=== PATIENT | male | born 1975 | race Caucasian/White ===

== ENCOUNTER 2019-07-13 15:32 | Outpatient (CLI) | payer OTHER, SELFPAY ==
--- NOTE | ~2019-07-13 | US_ITS ---
EXAMINATION: US right upper quadrant DATE: 07/13/2019 10:21 INDICATION: Right upper quadrant abdominal pain. Fatty liver. TECHNIQUE: Multiple grayscale and Doppler ultrasound images of the abdomen were obtained. COMPARISON: 03/27/2018 FINDINGS: The region of the pancreas is obscured by shadowing bowel gas. Liver has normal contour, with a mayo h surface. There is increased parenchymal echogenicity and coarsened echotexture consistent with diff use hepatic steatosis. No liver lesion identified although sensitivity is decreased by the poor acous tic penetration resulting from the steatosis. No intrahepatic biliary duct dilation suspected. Rain l venous flow was seen in the hepatopetal, normal direction and has normal Doppler waveform. The gall bladder is normal in appearance. There is no cholelithiasis. The common bile duct measures 3 mm, whi ch is normal. Sonographic Ornelas sign was reported as negative by the heddle machine operator.Visualized portion of the right kidney demonstrates normal contour and echogenicity with no hydronephrosis. IMPRESSION: 1. Diffuse hepatic steatosis. Reviewed, dictated and finalized at location A. TOWER CLIMBER
== END 2019-07-13 15:33 | disposition home or self-care (01) ==
LOC: ANHIMG 11-14 15:33
DX: K76.0 Fatty (change of) liver, not elsewhere classified (principal)
CPT/HCPCS: 76705

== ENCOUNTER 2021-09-01 11:19 | Emergency (ER) | payer BC, SELFPAY ==
[2021-09-01] VITALS (9 sets, daily range): BP systolic 157–197; BP diastolic 89–108; PULSE 98–104; RESP 13–22; TEMP 35.7–37.4; O2SAT 97–100
--- NOTE | ~2021-09-01 | XR_ITS ---
EXAMINATION: XR chest 1V portable EXAM DATE: 09/01/2021 13:57 INDICATION: COVID for 10 days, loose stool, shortness of breath. TECHNIQUE: Portable AP frontal chest x-ray was obtained. Comparison is made to prior examination from 03/19/2018. FINDINGS: Small patchy regions of mid and lower lung zone airspace disease, probably COVID pneumonia. No pneumothorax or pleural effusion. The cardiomediastinal silhouette is prominent but magnified on this AP technique. There are mild bony degenerative changes. IMPRESSION: Small patchy regions bilateral pneumonia. Reviewed, dictated and finalized at location A. EHOLD CHORES
--- NOTE | 2021-09-01 13:44 | ED.URI ---
HPI - URI/Sore Throat General Chief Complaint: Upper Respiratory Infection Stated Complaint: COVID + FEVER Time Seen by Provider: 09/01/21 13:33 Source: patient Mode of arrival: ambulatory Limitations: no limitations History of Present Illness HPI Narrative: Patient is a 45-year-old male complaining of cough, constant, productive, clear sputum accompanied by on and off fever and nausea for the past week. Patient states that he tested positive for Covid but actually is feeling better. Patient denies any chest pain, shortness of breath, abdominal pain, vomiting, diarrhea or rash. Related Data Allergies Allergy/AdvReac Type Severity Reaction Status Date / Time No Known Allergies Allergy Unverified 04/27/18 00:32 Review of Systems Review of Systems: All systems reviewed & are unremarkable except as noted in HPI and below Constitutional: Constitutional: Denies body ache(s), Denies excessive sweating, Denies fatigue, Denies headache(s), Denies lethargy, Denies malaise, Denies weakness and Denies weight loss Eyes: Eyes: Denies blurry vision, Denies change in vision and Denies loss of vision ENT: Denies dizziness, Denies ear discharge, Denies headache(s), Denies lip swelling, Denies epistaxis, Denies nasal congestion, Denies neck pain, Denies throat swelling and Denies tongue swelling Cardiovascular: Cardiovascular: Denies chest pain, Denies chest pain at rest, Denies chest pain with activity, Denies diaphoresis, Denies rapid heart rate, Denies edema, Denies irregular heart rhythm, Denies lightheadedness, Denies palpitations, Denies dyspnea and Denies dyspnea on exertion Respiratory: Respiratory: Denies chest congestion, Denies hemoptysis, Denies dyspnea and Denies dyspnea on exertion Gastrointestinal: Gastrointestinal: Denies abdominal pain, Denies melena, Denies hematochezia, Denies diarrhea, Denies vomiting and Denies hematemesis Musculoskeletal: Musculoskeletal: Denies abnormal gait, Denies deformity, Denies joint swelling, Denies limited range of motion, Denies neck pain and Denies numbness Neurologic: Denies Abnormal speech present, Denies abnormal gait, Denies confusion, Denies dizziness, Denies headache(s), Denies focal weakness, Denies loss of vision, Denies numbness, Denies Other visual disturbances, Denies Sensory deficit (Neuro) and Denies weakness Psychiatric: Psychiatric: Denies confusion, Denies depression, Denies auditory hallucinations, Denies homicidal ideation and Denies suicidal ideation Endocrine: Endocrine: Denies cold intolerance, Denies excessive sweating, Denies fatigue, Denies heat intolerance and Denies palpitations Hematologic/Lymphatic: Hematologic/Lymphatic: Denies easy bleeding and Denies easy bruising Allergic/Immunologic: Allergic/Immunologic: Denies lip swelling, Denies throat swelling and Denies tongue swelling PMFSH Comments Past medical history: None Family history: Hypertension Social history: Non-smoker no EtOH or drug use Exam Const: General: cooperative, comfortable, no acute distress, well developed, alert and awake; No confusion Nutritional Appearance: obese Orientation/consciousness: oriented to person, oriented to place, oriented to time, patient oriented x3 and No confusion Limitations: no limitations HENMT: Head: normal to inspection, normocephalic and atraumatic Ears: hearing grossly normal bilaterally, TM normal on the right and TM normal on the left General nose exam: Normal external nose present, Normal nares present and No nasal discharge present Face and sinus: normal facial exam Mouth: Yes Normal oral and palatal mucosa present, Yes lip normal, Yes tongue normal and Yes oropharynx normal Throat: posterior oropharynx normal, tonsils normal and uvula midline Eyes: General: appearance normal, both eyes and all related structures Pupils: Equal, round and reactive pupils present EOM: EOMs intact bilaterally Neck: Neck: normal visual inspection, full ROM, no lymphadenopathy and no
[2021-09-01 14:11] LABS: Basophils Percent Auto 0.2 % (0.2-1.2); Eosinophils Percent Auto 0.4 % (0-4.4); Hematocrit 43.3 % (42.0-52.0); Hemoglobin 15.2 g/dL (14.0-18.0); Immature Granulocyte Absolute 0.01 K/mm3 (0.00-0.031); Immature Granulocyte Percent A 0.2 % (0-0.5); Lymphocytes Percent Auto 19.8 % (18.3-44.2); Mean Corpuscular HGB Conc 35.1 g/dl (32-36); Mean Corpuscular Hemoglobin 30.5 pg (26-34); Mean Corpuscular Volume 86.8 fl (80-100); Mean Platelet Volume 10.6 fl (7.4-10.4); Monocytes Absolute Auto 0.3 K/mm3 (0.1-0.6); Monocytes Percent Auto 6.4 % (2.6-8.5); Neutrophils Absolute Auto 3.3 K/mm3 (1.3-6.7); Platelet Count Result 151 k/mm3 (150-375); Red Blood Count 4.99 M/mm3 (4.6-6.20); Red Cell Distribution Width 12.5 % (11.5-14.5); White Blood Count 4.5 K/mm3 (4.5-10.0)
[2021-09-01 14:27] LABS: Alanine Aminotransferase 82 U/L (4-50); Albumin Level 4.5 g/dL (3.5-5.1); Alkaline Phosphatase 92 U/L (38-126); Anion Gap 12 mmol/L (8-16); Aspartate Amino Transferase 58 U/L (17-59); Bilirubin,Total 0.7 mg/dL (0.2-1.3); Blood Urea Nitrogen 11 mg/dL (9-20); Calcium 9.1 mg/dL (8.4-10.2); Carbon Dioxide 26 mmol/L (22-30); Chloride 100 mmol/L (98-107); Estimated CRCL calculation 147 ml/min; Estimated Glomerular Filt Rate > 60; Glucose 127 mg/dL (65-110); Potassium 3.7 mmol/L (3.4-5.0); Sodium 138 mmol/L (137-145)
[2021-09-01] MEDS: PROMETHAZINE HCL 25 MG/ML AMPUL 12.5 MG IV PUSH (14:36)
[2021-09-01] MEDS: SODIUM CHLORIDE 0.9% IV 1,000 ML 999 ML IV CONT (14:36)
== END 2021-09-01 16:00 | disposition home or self-care (01) ==
PROVIDERS: Emergency Provider Emergency Medicine; PCP Family Medicine
DX: U07.1 COVID-19 (principal); J12.82 Pneumonia due to coronavirus disease 2019
CPT/HCPCS: 36415; 71045; 80053; 85025; 85055; 96361; 96374; 99284; J2550; J7030

== ENCOUNTER 2025-02-19 10:24 | Outpatient (CLI) | payer OTHER, SELFPAY ==
--- OUTSIDE RECORDS SUMMARY | 2025-02-19 12:58 | XMS_ITS | Referral Summary ---
Author Organization [facility] Address [address] [place] [id number] Care Team Providers Care Juice Standardizer Name Role Phone Hector Ghotra DO Primary Care Provider Sloan Rayo MD Unavailable [phone] Allergies Active Allergy Reactions Criticality Noted Date Comments Bee Pollen Hives,Unknown Medium 01/22/2013 FROM ALLERGY TEST; BAD SEASONAL ALLERGIES Grass Pollen Unknown 01/22/2013 FROM ALLERGY TEST; STATES SEASONAL ALLERGIES Shellfish Containing Products Unknown 01/22/2013 PT STATES FROM ALLERGY TEST; ABLE TO EAT SHELLFISH Tilactase Unknown 01/22/2013 Medications fluticasone propionate (FLONASE) 50 mcg/actuation nasal spray Administer 2 sprays into affected nostril(s) daily as needed 3 Active omeprazole (PriLOSEC) 20 mg capsuleIndicatio ns:Gastroesophag eal reflux disease without esophagitis Take 1 capsule (20 mg total) by mouth daily 90 capsule 3 4 Active cetirizine-pseud oephedrine ER (ZyrTEC-D) 5-120 mg per 12 hr tabletIndication s:Seasonal allergic rhinitis due to pollen Take 1 tablet by mouth 2 (two) times a day 60 tablet 11 4 06/17/20 25 Active Active Problems Problem Noted Date Diagnosed Date Seasonal allergic rhinitis due to pollen 024 Overview (06/17/2024): Chronic condition stable on Zyrtec D Continue same medications H/O bariatric surgery 11/14/2023 Overview (06/17/2024): September 2022 - weight approximately 325 lb Routine physical examination 11/14/2023 Overview (06/17/2024): April 11, 2023 June 17, 2024 Type 2 diabetes mellitus wit hout complication, without long-term current use of insulin 09/27/2022 Overview (11/14/2023): Overall stable and not on medication at this time A1c was 8.9 in September 2022 (just prior to his gastric bypass surgery) Assessment & Plan (11/14/2023 4:51 PM CDT): Update labs with A1c Mild mood disorder 04/04/2022 Overview (11/14/2023): Chronic, stable condition on SSRI Continue same medication Iron deficiency anemia due to chronic blood loss 10/12/2018 CPAP (continuous positive airway pressure) dominique esquivel 10/30/2017 Anemia 10/02/2015 Assessment & Plan (11/14/2023 4:51 PM CDT): Update labs Acid reflux 10/02/2013 Overview (11/14/2023): Doing well on daily PPI Continue same medication Anxiety 10/02/2013 Chronic lower back pain 10/02/2013 Primary hypertension 10/02/2013 Overview (11/14/2023): Onset: 1975 Stable not on meds at this time Dyslipidemia 10/02/2013 Overview (11/14/2023): Stable not on meds at this time LDL 128 in August 2022 (prior to his gastric bypass surgery) Assessment & Plan (11/14/2023 4:51 PM CDT): Update labs Obstructive sleep apnea 10/02/2013 Overview (11/14/2023): Can continue with pulmonology Hypogonadism, testicular 12/24/2012 Assessment & Plan (11/14/2023 4:51 PM CDT): Recheck labs Resolved Problems Problem Noted Date Diagnosed Date Resolved Date Morbid obesity 04/04/2022 06/17/2024 Anemia 10/01/2018 11/14/2023 Immunizations Immunization Administration Dates Next Due DTaP, Unspecified 05/07/2008 Influenza, Quadrivalent, Rec ombinant, Egg Free, Preservative Free, Intramuscular 05/25/2019 Influenza, Quadrivalent, Spl it, Preservative Free, Intramuscular 06/14/2018 Influenza, Split 06/08/2016 Influenza, Unspecified 06/17/2024(Deferr ed: Patient Refused),11/14/2023(Deferred: Patient Refused),06/14/2018,07/03/2017, 015,07/03/2014 Pneumococcal Conjugate Pcv20 11/14/2023(Deferred : Patient Refused) Tdap 02/07/2020,05/07/2008 Social History Tobacco Use Types Packs/Day Years Used Date Smoking Tobacco: Never Smokeless Tobacco: Never Tobacco Cessation:Counseling Given: Not Answered Alcohol Use Standard Drinks/Week Comments Yes 0 (1 standard drink = 0.6 oz pur e alcohol) AUDIT-C Answer Date Recorded Q1: How often do you have a drink containing alc ohol? Monthly or less 06/17/2024 Q2: How many drinks containi ng alcohol do you have on a typical day when you are drinking? 1 or 2 06/17/2024 Q3: How often do you have si x or more drinks on one occasion? Never 06/17/2024 PHQ-2 Answer Date Recorded PHQ-2 Total Score (If total score is 3 or more points, staff should administer the PHQ-9) 0 11/14/2023 Personal Safety Answer Date Recorded Getting School Help Needed Not on file 09/12 Sex and Gender Information Value Date Recorded Sex Assigned at Not on file Legal Sex Male 8:07 PM ART THERAPY SPECIALIST Gender Identity Not on file Sexual Orientation Not on file Last Filed Vital Signs Vital Sign Reading Time Taken Comments Blood Pressure 120/78 06/17/2024 3:23 PM CDT Pulse 75 06/17/2024 3:23 PM CDT Temperature 36.3 C (97.4 F) 06/17/2024 3:23 PM CDT Respiratory Rate 18 06/17/2024 3:23 PM CDT Oxygen Saturation 99% 06/17/2024 3:23 PM CDT Inhaled Oxygen Concentration - - Weight 109.8 kg (242 lb) 06/17/2024 3:23 PM CDT Height 181.6 cm (5' 11.5) 06/17/2024 3:23 PM CD T Body Mass Index 33.28 06/17/2024 3:23 PM CDT Plan of Treatment Not on file Procedures Procedure Name Priority Date/Time Associated Diagnosis Comments EGFR Routine 06/17/2024 4:19 PM CDT HEMOGLOBIN A1C Routine 06/17/2024 4:19 PM CDT LIPID PANEL Routine 06/17/2024 4:19 PM CDT COLONOSCOPY Routine 12/14/2020 from Last 3 Months or Most Recently Relevant to Health Maintenance Results * eGFR (06/17/2024 4:19 PM CDT) eGFR >90 >=60 mL/min/1. 73 m2 Comment: Interpretive Data Reference Interval Normal >/= 90 mL/min/1.73m2 Mildly decreased* 60 - 89 mL/min/1.73m2 Mildly to moderately decreased 45 - 59 mL/min/1.73m2 Moderately to severely decreased 30 - 44 mL/min/1.73m2 Severely decreased 15 - 29 mL/min/1.73m2 Kidney Failure < 15 mL/min/1.73m2 *Relative to young adult level Estimated glomerular filtration rate is determined by the 2020 CKD-EPI equation recommended by the National Kidney Foundation (A Unifying Approach to GFR Estimation: Recommendations of the NKF-ASK Task Force on Reassessing the Inclusion of Race in Diagnosing Kidney Disease, JASN 2020). The CKD-EPI equation should not be used for patients with unstable renal function and has not been validated in children and those over 70. Current interpretive data was last reviewed 2021. Testing performed by: [facility], [address] [place] [address], [place]., [address] Blood 06/17/2024 4:19 PM CDT 06/17/2024 5:07 PM CDT Maria Antonia Verduzco SCREW MACHINE OPERATOR LAB BLOOD ORDERABLES Final R esult Performing Organization Address [facility] Co de Phone Number [facility] [address] [address] * Hemoglobin A1c (06/17/2024 4:19 PM CDT) Hgb A1C 5.4 4.0 - 5.6 % Comment:Testing performed by : [address] [address] Estimated Average Glucose 108 mg/dL [facility] Comment: The ADA recommends reporting an estimated Average Glucose (eAG) with all Hemoglobin A1c results using the equation derived from a study of 507 normal and diabetic adults. Minority populations were underrepresented and children were not included. (Diabetes Care 31:8663-2824, 2008). The eAG is not equivalent to a fasting glucose. Testing performed by: [facility], [address] [place] [address]., [address] Blood 06/17/2024 4:19 PM CDT 06/17/2024 5:07 PM CDT Maria Antonia Verduzco SCREW MACHINE OPERATOR LAB BLOOD ORDERABLES Final R [facility] Performing Organization Address [facility] Co de Phone Number [address] [address] * (ABNORMAL) Lipid panel (06/17/2024 4:19 PM CDT) Cholesterol 222(H) 30 - 199 mg/dL Comment: Interpretive Data Ages < or = 19 years Acceptable: <170 mg/dL Borderline high: 170-199 mg/dL High: >or= 200 mg/dL Ages > or = 20 years Desirable: <200 mg/dL Borderline high: 200-239 mg/dL High: >or= 240 mg/dL Literature References: 1. Expert Panel on Integrated Guidelines for Cardiovascular Health and Risk Reduction in Children and Adolescents. Pediatrics 2011;128:S213 2. NCEP Expert Panel. Circulation 2004;110:227 Current Interpretive Data was last revised on 2018. Testing performed by: [address] [address] Triglycerides 124 <=149 mg/dL [facility] Comment: Interpretive Data Ages < or = 9 years Acceptable: <75 mg/dL Borderline high: 75-99 mg/dL High: >or= 100 mg/dL Ages 10 to 20 years Acceptable: <90 mg/dL Borderline high: 90-129 mg/dL High: >or= 130 mg/dL Ages > or = 20 years Desirable: <150 mg/dL Borderline high: 150-199 mg/dL High: 200-499 mg/dL Very high: >or= 499 mg/dL Literature References: 1. Expert Panel on Integrated Guidelines for Cardiovascular Health and Risk Reduction in Children and Adolescents. Pediatrics 2011;128:S213 2. NCEP Expert Panel. Circulation 2004;110:227 Current Interpretive Data was last revised on 2018. Testing performed by: [address] [address] HDL 45 >=40 mg/dL [facility] Comment: Interpretive Data Ages < or = 19 years Acceptable: >45 mg/dL Borderline low: 40-45 mg/dL Low: <40 mg/dL Ages > or = 20 years Desirable: >or= 60 mg/dL Low: <40 mg/dL Literature References: 1. Expert Panel on Integrated Guidelines for Cardiovascular Health and Risk Reduction in Children and Adolescents. Pediatrics 2011;128:S213 2. NCEP Expert Panel. Circulation 2004;110:227 Current Interpretive Data was last revised on 2018. Testing performed by: [address] [address] LDL, calculated 155(H) <=129 mg/dL [facility] Comment: Interpretive Data Ages < or = 19 years Acceptable: <110 mg/dL Borderline high: 110-129 mg/dL High: >or= 130 mg/dL Ages > or = 20 years Optimal: <100 mg/dL Near optimal: 100-129 mg/dL Borderline high: 130-159 mg/dL High: >160 mg/dL Calculated using the Diallo LDL-C estimating equation. This equation was implemented on 2024. Prior to this date LDL-C was estimated using the Friedewald equation. Literature References: 1. Expert Panel on Integrated Guidelines for Cardiovascular Health and Risk Reduction in Children and Adolescents. Pediatrics 2011;128:S213 2. NCEP Expert Panel. Circulation 2004;110:227 3. Yoel M et al. DEVYN Cardiol. 2019January 02;5(5):540-548. doi: [email or web address] Current Interpretive Data was last revised on 2024. Testing performed by: [address] [address] Non-HDL Cholesterol 177 mg/dL [facility] HERRMANN Comment: Interpretive Data Ages < or = 19 years Acceptable: <120 mg/dL Borderline high: 120-144 mg/dL High: >145 mg/dL Ages > or = 20 years When triglycerides are >200 mg/dL, Non-HDL cholesterol is a secondary target of therapy with treatment goals that are 30 mg/dL greater than the LDL cholesterol target. Literature References: 1. Expert Panel on Integrated Guidelines for Cardiovascular Health and Risk Reduction in Children and Adolescents. Pediatrics 2011;128:S213 2. NCEP Expert Panel. Circulation 2004;110:227 Current Interpretive Data was last revised on 2018. Testing performed by: [address] [address] Chol/HDL ratio 5 [facility] Comment:Testing performed by : [address] [address] Blood 06/17/2024 4:19 PM CDT 06/17/2024 5:07 PM CDT Maria Antonia Verduzco SCREW MACHINE OPERATOR LAB BLOOD ORDERABLES Final R esult [facility] HERRMANN [address] [facility] [place] [address] * Colonoscopy (12/14/2020) Anatomical Region Laterality Modality Other Historical Provider ENDOSCOPY PROCEDURES Tammie l Result from Last 3 Months or Most Recently Relevant to Health Maintenance Insurance [employer] ON LICENSE OF [facility] Care Teams Juice Standardizer Relationship Specialty Start Date End Date Hector Ghotra DO PCP - General Family Practice 09/26/18 Sloan Rayo MD Medical Oncologist/Laundry Operator Hematology and Oncology 10/04/18
--- OUTSIDE RECORDS SUMMARY | 2025-02-19 12:58 | XMS_ITS | Clinical Summary ---
Author Organization [facility] Address [address] [address] Phone Care Team Providers Care Die Cast Supervisor Name Role Phone Hector Ghotra DO Primary Care Provider Allergies Active Allergy Reactions Criticality Noted Date Comments Bee Pollen Unknown 01/22/2013 FROM ALLERGY TEST; BAD SEASONAL ALLERGIES Grass Pollen Unknown 01/22/2013 FROM ALLERGY TEST; STATES SEASONAL ALLERGIES Shellfish Containing Products Unknown 01/22/2013 PT STATES FROM ALLERGY TEST; ABLE TO EAT SHELLFISH Medications allopurinoL (ZYLOPRIM) 100 mg tablet Take 300 mg by mouth daily. Active fluticasone propionate (FLONASE) 50 mcg/spray [place], Suspension nasal inhaler Administer 2 Sprays in each nostril 1 time daily as needed. Active cetirizine 5 mg-pseudoephedr ine ER 120 mg tablet,extended release,12hr Take 1 Tablet by mouth 2 times daily. Active atorvastatin (LIPITOR) 20 mg tablet Take 20 mg by mouth. 2 Active FLUoxetine 40 mg capsule Take 40 mg by mouth daily. Active omeprazole 20 mg capsule,delayed release Take 20 mg by mouth daily. Active HYDROcodone-matthew taminophen (HYCET) 7.5-325 mg/15 mL SolutionIndicat ions:Post-op pain Take 15 mL by mouth every 6 hours as needed for severe pain. Max Daily Amount: 60 mL 300 mL 09/27/2022 12:09 PM RAILROAD DETECTIVE 3 Active ondansetron (ZOFRAN ODT) 4 mg Tablet, Rapid Dissolve Dissolve 1 tablet on top of tongue, then swallow with saliva every 6 hours as needed for Nausea/Vomiting . 28 Tablet 09/27/2022 12:09 PM RAILROAD DETECTIVE Active Active Problems Problem Noted Date Diagnosed Date Type 2 diabetes mellitus wit hout complication, without long-term current use of insulin 09/27/2022 Insulin resistance 09/27/2022 Nausea 09/26/2022 General medical exam 09/26/2022 Immunizations Immunization Administration Dates Next Due (ADACEL/BOOSTRIX)(10 YR UP) TDAP VACCINE, 0.5ML, IM 02/07/2020,05/07/2008 DTaP, Unspecified Formulation 05/07/2008 INFLUENZA VACCINE QUADRIVALE NT 6 MOS UP PF IM 06/14/2018 INFLUENZA VACCINE QUADRIVALE NT RECOMB 18 YR UP PF IM 05/25/2019 Influenza Seasonal Unspecifi ed Formulation IM 06/14/2018 Influenza Seasonal Unspecifi ed Formulation PF IM 06/08/2016 Influenza Virus Vaccine, Spl it Virus (Incl. Purified Surface antigen)-retired CODE 06/08/2016 Influenza, Unspecified Formulation 06/14,06/04/2018,07/03/2017,2014,07/03/2014 Family History Medical History Relation Name Comments Diabetes Father Heart Disease Paternal Grandfather Relation Name Status Comments Father Paternal Grandfather Social History Tobacco Use Types Packs/Day Years Used Date Smoking Tobacco: Never Smokeless Tobacco: Former Chew Tobacco Cessation:Counseling Given: Not Answered Comments:QUIT CHEWING THEN STARTED VAPING Alcohol Use Standard Drinks/Week Comments Not Currently 0 (1 standard drink = 0.6 oz pur e alcohol) Sex and Gender Information Value Date Recorded Sex Assigned at Not on file Legal Sex Male 11:58 AM CDT Gender Identity Not on file Sexual Orientation Not on file Last Filed Vital Signs Vital Sign Reading Time Taken Comments Blood Pressure 141/74 09/27/2022 8:16 AM RAILROAD DETECTIVE Pulse 75 09/27/2022 7:29 AM RAILROAD DETECTIVE Temperature 36.8 C (98.3 F) 09/27/2022 7:29 AM RAILROAD DETECTIVE Respiratory Rate 16 09/27/2022 7:29 AM RAILROAD DETECTIVE Oxygen Saturation 97% 09/27/2022 7:29 AM RAILROAD DETECTIVE Inhaled Oxygen Concentration - - Weight 127.4 kg (280 lb 12.8 oz) 09/26/2022 3:19 PM RAILROAD DETECTIVE Height 180.3 cm (5' 11) 09/26/2022 3:19 PM RAILROAD DETECTIVE Body Mass Index 39.16 09/26/2022 3:19 PM RAILROAD DETECTIVE Plan of Treatment Health Maintenance Due Date Last Done Comments DIABETES ANNUAL FOOT EXAM 12/14/1993 DIABETES ANNUAL RETINAL EXAM 12/14/1993 DIABETES MICROALBUMIN ANNUAL SCREEN 12/14/1993 LDL CHOLESTEROL ANNUAL 12/14/1993 HEPATITIS B VACCINES (1 of 3 - 19+ 3-dose series) 12/14/1994 FIT-DNA Q 3 years 12/14/2020 FIT/FOBT Q 1 year 12/14/2020 Flex Sig/CT Colonography Q 5 years 12/14/2020 DIABETES HBA1C Q 6 MONTHS 03/27/2023 09/27/2022 INFLUENZA VACCINE (#1) 2024 9, 06/14/2018, 06/14/2018, Additional history exists COLORECTAL SCREENING 05/03/2028 05/03/2018 Colorectal Cancer Screening 05/03/2028 DTAP/TDAP/TD VACCINES (3 - T d or Tdap) 02/06/2030 02/07/2020, 05/07/2008, 05/07/2008 Medical Devices Implanted Type Area Solar Photovoltaic Crew Lead Device Identifier Shelf Expiration Date Model / Serial / Lot Seamguard Endogia 60 Blk [id number] - [id number] Implanted:Qt y: 1 on 09/26/2022 by Manpreet Pastrana MD at [facility] Biological N/A: [employer] [id number] 05/11/2025 12BSGTRI 60B / / [id number] Seamguard Endogia 60 Blk [id number] - [id number] Implanted:Qt y: 1 on 09/26/2022 by Manpreet Pastrana MD at [facility] Biological N/A: [employer] [id number] 05/11/2025 12BSGTRI 60B / / [id number] Seamguard Endogia 60 Prpl [id number] - [id number] Implanted:Qt y: 1 on 09/26/2022 by Manpreet Pastrana MD at [facility] Biological N/A: [employer] [id number] 05/30/2025 12BSGTRI 60P / / [id number] Seamguard Endogia 60 Prpl [id number] - [id number] Implanted:Qt y: 1 on 09/26/2022 by Manpreet Pastrana MD at [facility] Biological N/A: [employer] [id number] 05/30/2025 12BSGTRI 60P / / [id number] Seamguard Endogia 60 Blk [id number] - [id number] Implanted:Qt y: 1 on 09/26/2022 by Manpreet Pastrana MD at [facility] Biological N/A: [employer] [id number] 04/13/2025 12BSGTRI 60B / / [id number] Procedures Procedure Name Priority Date/Time Associated Diagnosis Comments HEMOGLOBIN A1C Routine 09/27/2022 4:44 AM RAILROAD DETECTIVE from Last 3 Months or Most Recently Relevant to Health Maintenance Results * (ABNORMAL) HEMOGLOBIN A1C (09/27/2022 4:44 AM RAILROAD DETECTIVE) HEMOGLOBIN A1C 8.9(H) <=5.6 % 09/27/2022 5:20 AM RAILROAD DETECTIVE [facility] EST. AVG GLUCOSE, A1C 209 mg/dL 09/27/2022 5:20 AM [facility] Blood Venipuncture / Unknown 09/27/2022 4:44 AM RAILROAD DETECTIVE 09/27/2022 5:01 AM RAILROAD DETECTIVE Narrative [facility] - 09/27/2022 5:20 AM RAILROAD DETECTIVE HGB A1C INTERPRETATION NORMAL: <5.7% PRE-DIABETES: 5.7 - 6.4% DIABETES: 6.5% OR GREATER Leah MERCEDESP CHEMISTRY ORDERABLES Final Resul t [facility] # [id number] [facility] [address] [place] [address] from Last 3 Months or Most Recently Relevant to Health Maintenance Insurance BCBS BLUE ACCESS/TRUE BLUE PPO RX [employer] Commercial Advance Directives For more information, please contact: [phone] * Full Code (Latest Code Status on File) Date Activated Date Inactivated Comments 09/26/2022 11:09 AM 09/27/2022 2:55 PM * Full Code Date Activated Date Inactivated Comments 09/26/2022 9:29 AM 09/26/2022 11:09 AM * Full Code Date Activated Date Inactivated Comments 08/05/2022 9:26 AM 08/05/2022 2:06 PM Care Teams Die Cast Supervisor Relationship Specialty Start Date End Date Hector Ghotra DO PCP - General Family Practice 08/05/22
--- OUTSIDE RECORDS SUMMARY | 2025-02-19 12:58 | XMS_ITS | Clinical Summary ---
Author Organization [facility] Address [address] [place] [address] Care Team Providers Care Cook Helper Fruit Name Role Phone Brandin Hector Root DO Primary Care Provider Yoni Perez MD Unavailable [phone] Allergies Active Allergy Reactions Criticality Noted Date Comments Bee Pollen Unknown 01/22/2013 FROM ALLERGY TEST; BAD SEASONAL ALLERGIES Grass Unknown 01/22/2013 Pollen Extract Unknown 01/22/2013 Shellfish Allergy Unknown 01/22/2013 Tilactase Unknown 01/22/2013 Medications CPAP DME DEVICE 15 cm. 10/31/2016 Act nina albuterol sulfate HFA 108 (90 Base) MCG/ACT inhaler Inhale 1-2 puffs into the lungs every 4 (four) hours as needed. Active omeprazole (PRILOSEC) 20 MG capsuleIndicati ons:Acid reflux TAKE 1 CAPSULE BY MOUTH EVERY DAY 90 capsule 1 08/31/2022 Active Multiple Vitamins-Minera ls (BARIATRIC MULTIVITAMINS/I JESUS OR) Active vitamin C (ASCORBIC ACID) 1000 MG tablet Take 1,000 mg by mouth daily. Active Cyanocobalamin (VITAMIN B12 TR) 2000 MCG Tab CR Active fluticasone propionate (FLONASE) 50 MCG/ACT nasal sprayIndication s:Allergic rhinitis 2 sprays by Each Nostril route daily as needed. 16 g 1 05/19/2023 Active FLUoxetine (PROZAC) 40 MG capsuleIndicati ons:Depression Take 1 capsule (40 mg total) by mouth daily. 90 capsule 1 05/22/2023 Active HYDROcodone-matthew taminophen (NORCO) 10-325 MG tabletIndicatio ns:Chronic Pain Take 1 tablet by mouth every 8 (eight) hours as needed for Pain. Indications: Chronic Pain 90 tablet 06/06/2023 Active cetirizine-pseu doephedrine ER (ZYRTEC-D) 5mg-120mg 12 hr tabletIndicatio ns:Seasonal allergic rhinitis due to pollen Take 1 tablet by mouth 2 (two) times daily. 60 tablet 08/01/2023 Active acetaminophen-c odeine (TYLENOL #3) 300-30 MG tabletIndicatio ns:Chronic low back pain TAKE 1 TABLET BY MOUTH THREE TIMES DAILY NEEDED FOR PAIN 90 tablet 08/03/2023 Active Active Problems Problem Noted Date Diagnosed Date Traumatic complete tear of right rotator cuff Neck pain 12/26/2022 Type 2 diabetes mellitus wit hout complication, without long-term current use of insulin ([facility]) 10/12/2022 Morbid obesity 04/04/2022 Mild mood disorder 04/04/2022 Bronchitis 10/22/2021 Class 3 severe obesity witho ut serious comorbidity with body mass index (BMI) of 40.0 to 44.9 in adult 09/01/2018 DISH (diffuse idiopathic skeletal hyperostosis) 09/01/2018 External hemorrhoid 06/12/2018 Discitis 05/11/2018 CPAP (continuous positive airway pressure) depen dence 10/30/2017 Anemia 10/02/2015 Allergic rhinitis 10/02/2013 Acid reflux 10/02/2013 Anxiety 10/02/2013 Chronic lower back pain 10/02/2013 Fatty liver 10/02/2013 Overview (10/30/2018): Description: elevated LFT's 03/2007 Hyperlipidemia 10/02/2013 Hypertension 10/02/2013 Overview (10/30/2018): Onset: 1975 Irritable bowel syndrome 10/02/2013 Overview (10/30/2018): Description: diarrhea predominant Obstructive sleep apnea 10/02/2013 Reactive airway disease ([facility]) 10/02/2013 Depression 09/29/2013 Gout 09/29/2013 Hypogonadism, testicular 12/24/2012 Resolved Problems Problem Noted Date Diagnosed Date Resolved Date Health maintenance examination 02/07/2020 05/15/2020 Encounter for prostate cancer screening 09/07/2018 05/15/2020 Immunizations Immunization Administration Dates Next Due Flublok (Quadrivalent) 05/25/2019 Influenza (Generic) 06/04/2018,07/03/2017,2014 Influenza 3 yrs + Preservati ve Free (Fluzone) 06/08/2016 Influenza Adult (Generic) 06/14/2018,07/03/2014 Tdap (Generic) 05/07/2008 Tdap (Historical Only-select from magnify glass) 02/07/2020 Family History Medical History Relation Comments Diabetes Father Diabetes Maternal Grandfather HEMOCHROMATOSIS Maternal Grandfather Diabetes Paternal Grandmother LIVER CANCER Paternal Grandmother Relation Status Comments Father Maternal Grandfather Paternal Grandmother Social History Tobacco Use Types Packs/Day Years Used Date Smoking Tobacco: Never Smokeless Tobacco: Never Alcohol Use Standard Drinks/Week Comments No 0 (1 standard drink = 0.6 oz pur e alcohol) AUDIT-C Answer Date Recorded Frequency of Alcohol Consumption Never 10/30/2018 Average Number of Drinks Not on file 019 Frequency of Binge Drinking Not on file 10/06 PHQ-2 Answer Date Recorded Patient Health Questionnaire-2 Score 0 04/11/2023 Sex and Gender Information Value Date Recorded Sex Assigned at Not on file Legal Sex Male 10:25 PM CDT Gender Identity Not on file Sexual Orientation Not on file Last Filed Vital Signs Vital Sign Reading Time Taken Comments Blood Pressure 144/86 04/11/2023 2:02 PM CDT Pulse 67 04/11/2023 2:02 PM CDT Temperature 36.6 C (97.8 F) 10/22/2021 10:11 AM PATTERN MARKER Respiratory Rate 16 10/30/2018 4:02 PM PATTERN MARKER Oxygen Saturation 97% 10/22/2021 10:11 AM PATTERN MARKER Inhaled Oxygen Concentration - - Weight 112.9 kg (249 lb) 04/11/2023 2:02 PM CDT Height 181.6 cm (5' 11.5) 04/11/2023 2:02 PM CD T Body Mass Index 34.24 04/11/2023 2:02 PM CDT Plan of Treatment Health Maintenance Due Date Last Done Comments Colorectal Cancer Screening Colonoscopy (10 Years) 1975 Kidney Health Evaluation 1975 Diabetes: Retinopathy Eye Exam 12/14/1993 Hepatitis C 12/14/1993 Hepatitis B Vaccines (1 of 3 - 19+ 3-dose series) 12/14/1994 Pneumococcal Vaccine: Pediatrics (0 to 5 Years) and At-Risk Patients (6 to 49 Years) (1 of 2 - PCV) 12/14/1994 Hemoglobin A1C 03/27/2023 09/27/2022 Annual Physical 04/11/2024 04/11/2023, 08/0 09/2021, 02/26/2021, Additional history exists Lipid Panel 04/15/2024 04/15/2023, 08/05, 08/25/2022, Additional history exists COVID-19 Vaccine ( - 2023- season) 2024 DTaP, Tdap and Td Vaccines (3 - Td or Tdap) 02/06/2030 02/07/2020, 05/07/2008 Meningococcal B Vaccine Aged Out No l onger eligible based on patient's age to complete this topic Meningococcal Vaccine Aged Out No monster chano eligible based on patient's age to complete this topic RSV Immunizations Under 20 Months Aged Out No longer eligible based on patient's age to complete this topic Procedures Procedure Name Priority Date/Time Associated Diagnosis Comments LIPID PANEL Routine 04/15/2023 Mixed hyperlipidemia from Last 3 Months or Most Recently Relevant to Health Maintenance Results * LIPID PANEL (04/15/2023) Hector Ghotra DO LABORATORY Final Resul t [address] [facility] [address] [place] [address], from Last 3 Months or Most Recently Relevant to Health Maintenance Insurance [facility] [address] [id number] Care Teams Cook Helper Fruit Relationship Specialty Start Date End Date Hector Ghotra DO PCP - General FAMILY PRACTICE 10/30/18 [place] [address] [place] [address] ORTHOPAEDIC SURGERY 04/14/23
--- OUTSIDE RECORDS SUMMARY | 2025-02-19 12:58 | XMS_ITS | Continuity of Care Document ---
Author Organization [facility] Address [address] [place] [address] [place] [address] Phone Care Team Providers Care Grinder Set Up Operator Thread Name Role Phone Juan Chaudhary DO Unavailable Unavailable Advance Directives Directive Yes / No Effective Date File Name No Information Encounters Encounter Description Practice Location Reason(s) For Visit Diagnoses Date Provider Providers Copied on Encounter [facility], [address], [place], [place], [id number], [place] tel:[phone] [facility] No Information Neena Medina. [address] [facility], [place], [address], [place]. tel:[phone] Family History Family Member Type Diagnosis Age At Onset No Information Payers Payer name Insurance type Covered republican ID Authoriza tion(s) No Information Social History Type Description Quantity Date Captured Comments Sex Male Smoking Status No Information Chief Complaint And Reason For Visit No Information Reason For Referral Reason For Referral No Information History Of Present Illness Encounter Date Complaint History Of Prese nt Illness No Information Functional Status Date Functional Assessmen t No Information Instructions Date Instruction Additional Infor mation No Information Assessments Type Assessment Date No Information Patient Care Teams Name Effective Dates (start - stop) Status Members No Information
--- OUTSIDE RECORDS SUMMARY | 2025-02-19 12:58 | XMS_ITS | Clinical Summary ---
Author Organization [facility] Address [address] [place] [address] Care Team Providers Care Body Painter Name Role Phone Charlee Hicsk RN Unavailable [phone] Hector Ghotra DO Primary Care Provider [phone] Source Comments [facility],non-owned Affiliates and Associated Physician Practices is amultiple site organization consisting of ambulatory clinics and hospital sitesin [place], [place], [place] and [place]. This disclosure is being madepursuant to the Care Everywhere program and may not contain all information available regarding this patient. Last updated 18.[facility] [employer] Allergies No known active allergies Medications * Be aware that medications may not be up to date on this document. Alwaysverify current medications with the patient. allopurinol (ZYLOPRIM) 300 MG tablet Take 300 mg by mouth at bedtime Active FLUoxetine (PROZAC) 40 MG capsule Take 40 mg by mouth at bedtime Active cetirizine (ZYRTEC) 10 MG tablet Take 10 mg by mouth at bedtime Active multivitamin daily (THERAGRAN) tablet Take 1 tablet by mouth 2 times daily Active traMADol (ULTRAM) 50 MG tablet Take 50 mg by mouth every 6 hours as needed 0 03/30/2018 Active testosterone cypionate (DEPO-TESTOTERO NE) 200 MG/ML injection Inject 2 mg into muscle every 7 days 4 04/09/2018 Active omeprazole (PRILOSEC) 20 MG capsule 4 04/15/2018 Active HYDROcodone-matthew taminophen (NORCO) 10-325 MG tabletIndicatio ns:External hemorrhoid Take 1 tablet by mouth every 6 hours as needed for Pain 25 tablet 08/07/2018 Active diazePAM (VALIUM) 5 MG tabletIndicatio ns:Muscle Spasm Take 1 tablet by mouth every 8 hours Reasons: Muscle Spasm 10 tablet 08/07/2018 Active Active Problems Problem Noted Date Diagnosed Date DISH (diffuse idiopathic skeletal hyperostosis) 09/01/2018 Class 3 severe obesity witho ut serious comorbidity with body mass index (BMI) of 40.0 to 44.9 in adult 09/01/2018 Perianal mass 06/12/2018 External hemorrhoid 06/12/2018 Resolved Problems Problem Noted Date Diagnosed Date Resolved Date Discitis of thoracic region 04/27/2018 09/01/2018 Immunizations Immunization Administration Dates Next Due INFLUENZA VACCINE, QUADR. (F LUZONE; FLULAVAL; FLUARIX; AFLURIA QUADRIVALENT; 6MO+), 0.5 ML (IIV4) 06/14/2018 Family History Medical History Relation Name Comments Diabetes - Type 2 Father None Known Mother Diabetes - Type 2 Paternal Grandmother Relation Name Status Comments Father Alive Mother Alive Paternal Grandmother Social History Tobacco Use Types Packs/Day Years Used Date Smoking Tobacco: Never Smokeless Tobacco: Never Alcohol Use Standard Drinks/Week Comments Yes 2 (1 standard drink = 0.6 oz pur e alcohol) 1/2 times a month Sex and Gender Information Value Date Recorded Sex Assigned at Not on file Legal Sex Male 2:52 PM CDT Gender Identity Not on file Sexual Orientation Not on file Last Filed Vital Signs Vital Sign Reading Time Taken Comments Blood Pressure 143/77 09/06/2018 9:31 AM ORGAN INSTALLER Pulse 96 09/06/2018 9:31 AM ORGAN INSTALLER Temperature 36.7 C (98.1 F) 08/21/2018 1:25 PM ORGAN INSTALLER Respiratory Rate 18 08/21/2018 1:25 PM ORGAN INSTALLER Oxygen Saturation 96% 09/06/2018 9:31 AM ORGAN INSTALLER Inhaled Oxygen Concentration 21% 08/01/2018 3 :25 PM ORGAN INSTALLER Weight 140.2 kg (309 lb) 09/06/2018 9:31 AM ORGAN INSTALLER Height 177.8 cm (5' 10) 09/06/2018 9:31 AM ORGAN INSTALLER Body Mass Index 44.34 09/06/2018 9:31 AM ORGAN INSTALLER Plan of Treatment Health Maintenance Due Date Last Done Comments COLOGUARD (AGES 45-75) - COLON CA SCREENING 1975 CT COLONOGRAPHY - COLON CA SCREENING 1975 FIT - COLON CA SCREENING 1975 FLEX SIG - COLON CA SCREENING 1975 LIPID TESTING 1975 HIV SCREENING 12/14/1990 HEPATITIS C SCREENING 12/10/1993 DTAP/TDAP/TD VACCINES (1 - Tdap) 12/14/1994 HEPATITIS B VACCINE (1 of 3 - 19+ 3-dose series) 12/14/1994 SCREENING FOR DIABETES 05/05/2021 8, 05/04/2018, 05/03/2018, Additional history exists COVID-19 VACCINE ( - season) 2024 DEPRESSION SCREENING 09/04/2024 INFLUENZA VACCINE (Season Ended) 2025 06/14/2018 ZOSTER VACCINE (1 of 2) 12/14/2025 COLON MONITORING 05/03/2028 05/03/2018, 05/03/2018 COLONOSCOPY - COLON CA SCREENING 05/03/2028 05/03/2018, 05/03/2018 Colorectal Cancer Screening 05/03/2028 HIB VACCINE Aged Out No longer eligi ble based on patient's age to complete this topic HPV VACCINE Aged Out No longer eligi ble based on patient's age to complete this topic MENINGOCOCCAL (Group B) VACCINE SHARED DECISION-MAKING Aged Out No longer eligible based on patient's age to complete this topic MENINGOCOCCAL GROUPS A/C/Y/W VACCINE Aged Out No longer eligible based on patient's age to complete this topic Procedures Procedure Name Priority Date/Time Associated Diagnosis Comments BASIC METABOLIC PANEL (CALCIUM TOTAL) AM Draw 05/05/2018 2:03 AM CDT ENDOSCOPY, COLON, DIAGNOSTIC Routine 05/03/2018 10:19 AM CDT from Last 3 Months or Most Recently Relevant to Health Maintenance Results * (ABNORMAL) BASIC METABOLIC PANEL (CALCIUM TOTAL) (05/05/2018 2:03 AM CDT) BUN 14 7 - 26 mg/dL 05/05/2018 2:57 AM CDT [facility] Creatinine 1.0 0.6 - 1.2 mg/dL 05/05/2018 2:57 AM [facility] Sodium 138 136 - 145 mmol/L 05/05/2018 2:57 AM [facility] Potassium 3.5 3.5 - 4.5 mmol/L 05/05/2018 2:57 AM [facility] Chloride 103 98 - 107 mmol/L 05/05/2018 2:57 AM [facility] CO2 22 22 - 29 mmol/L 05/05/2018 2:57 AM [facility] Glucose 167(H) 70 - 115 mg/dL 05/05/2018 2:57 AM [facility] Calcium 8.9 8.4 - 10.2 mg/dL 05/05/2018 2:57 AM [facility] Anion Gap 17 8 - 18 05/05/2018 2:57 AM [facility] BUN/Creatinine Ratio 14 7 - 23 05/05/2018 2:57 AM [facility] Osmolality Calculated 290 270 - 300 mOsm/kg 05/05/2018 2:57 AM [facility] eGFR >60 >60 mL/min/1.7 3 m2 05/05/2018 2:57 AM [facility] Blood BLOOD SPECIMEN / Unknown Lab Venipuncture / Unknown 05/05/2018 2:03 AM CDT 05/05/2018 2:33 AM CDT Tori Sweeney MD LAB - CHEMISTRY ORDERABLES Tammie thurman Result Performing Organization Address City/State/[facility] Co de Phone Number [place] [id number] [address] [phone] * ENDOSCOPY, COLON, DIAGNOSTIC (05/03/2018 10:19 AM CDT) Report Endoscopy POC Endoscopy Department Report _ Patient Name: Sheyla Sahni Procedure Date: 05/03/2018 10:19 AM Date of : 1975 Classification: Inpatient Gender: Male _ Providers: Nemo Armando MD, Joellen Cruz (Fellow) Referring MD: Procedure: Colonoscopy Indications: Chronic diarrhea Medications: Monitored Anesthesia Care Comorbidities Anxiety, Depression and GERD Patient Profile: This is a 42 year old male presenting ?with chronic diarrhea, and recent management of bacteroides and Coag negative staph bacteremia, discitis, OM - to identify possible source Description of Procedure: Pre-Anesthesia Assessment: - Prior to the procedure, a History and Physical was performed, and patient medications and allergies were reviewed. The patient's tolerance of previous anesthesia was also reviewed. The risks and benefits of the procedure and the sedation options and risks were discussed with the patient. All questions were answered, and informed consent was obtained. Prior Anticoagulants: The patient has taken no previous anticoagulant or antiplatelet agents. ASA Grade Assessment: II - A patient with mild systemic disease. After reviewing the risks and benefits, the patient was deemed in satisfactory condition to undergo the procedure. After I obtained informed consent, the scope was passed under direct vision. Throughout the procedure, the patient's blood pressure, pulse, and oxygen saturations were monitored continuously. The PCF-[id number] was introduced through the anus and advanced to the terminal ileum. The terminal ileum, ileocecal valve, appendiceal orifice, and rectum were photographed. The quality of the bowel preparation was evaluated using the BBPS (G[place]e Bowel Preparation Scale) with scores of: Right Colon = 2 (minor amount of residual staining, small fragments of stool and/or opaque liquid, but mucosa seen well), Transverse Colon = 2 (minor amount of residual staining, small fragments of stool and/or opaque liquid, but mucosa seen well) and Left Colon = 2 (minor amount of residual staining, small fragments of stool and/or opaque liquid, but mucosa seen well). The total BBPS score equals 6. The quality of the bowel preparation was good. Findings: 3 large external hemorrhoids were found on perianal exam. One of the hemorrhoids measured approximately 5cm. This was soft, fluctuant, suspected to be fluid filled, no ulceration, no mucoal abnormalites and it appeared to come from ~1cm distal to dentate line. this could be large hemrorhoid. The ileum and colon (entire examined portion) appeared normal. The retroflexed view of the distal rectum and anal verge was normal and showed no anal or rectal abnormalities. Estimated Blood Loss: Estimated blood loss was minimal. Complications: No immediate complications. Impression: - Large external hemorrhoids found on perianal exam. One of the suspected hemorrhoids measured 5cm and was almost mass-like on inital visit but was soft and felt fluid filled. This could be cyst, liipoma, or large hemorrhoid. it overall appeared benign but given patient's history cannot rule out malignancy and further evaluation is needed with ultrasound. - The terminal ileum and entire examined colon are normal. - The distal rectum and anal verge are normal on retroflexion view. Recommendation: - Patient has a contact number available for emergencies. The signs and symptoms of potential delayed complications were discussed with the patient. Return to normal activities tomorrow. Written discharge instructions were provided to the patient. - Resume previous diet. - Continue present medications. - Await pathology results. - Repeat colonoscopy for colon cancer screening purposes in 10 yrs. - Consider rectal ultrasound Attending Participation: I was present and participated during the entire procedure, including non-davis portions. Procedure Code(s): --- Professional --- 76015, Colonoscopy, flexible; diagnostic, including collection of specimen(s) by brushing or washing, when performed (separate procedure) Diagnosis Code(s): --- Professional --- K64.9, Unspecified hemorrhoids K52.9, Noninfective gastroenteritis and colitis, unspecified CPT copyright 2016 [employer]. All rights reserved. The codes documented in this report are preliminary and upon station usher review may be revised to meet current compliance requirements. _ Nemo Armando MD 05/03/2018 11:20:52 AM Note Initiated On: 05/03/2018 10:19 AM Number of Addenda: 1 [facility] [address] [place] [address] _ Addendum Number: 1 Addendum Date: 05/03/2018 11:53:36 AM Ileal biopsies were taken of the normal appearing ileum. Random colon biopsies obtained. _ Nemo Armando MD 05/03/2018 11:53:57 AM [facility] 05/03/2018 10:1 9 AM CDT Joellen Cruz MD GI PROCEDURE ORDERABLES Edited Result - Final [facility] from Last 3 Months or Most Recently Relevant to Health Maintenance Insurance [employer] Advance Directives * Full Code (Latest Code Status on File) Date Activated Date Inactivated Comments 08/01/2018 1:21 PM 08/01/2018 6:47 PM * Full Code Date Activated Date Inactivated Comments 04/27/2018 8:44 PM 05/05/2018 4:37 PM Care Teams Body Painter Relationship Specialty Start Date End Date Hector Ghotra DO PCP - General 05/31/18 Charlee Hicks RN Pack Room Operator 04/30/18
--- OUTSIDE RECORDS SUMMARY | 2025-02-19 12:58 | XMS_ITS | Clinical Summary ---
Author Organization [facility] Care Team Providers Care Email Marketing Processor Name Role Phone Unavailable Primary Care Provider Unavailabl e Social History Tobacco Use Types Packs/Day Years Used Date Smoking Tobacco: Never Assessed Sex and Gender Information Value Date Recorded Sex Assigned at Not on file Legal Sex Male 2:22 PM INVENTORY CLERK Gender Identity Not on file Sexual Orientation Not on file Plan of Treatment Health Maintenance Due Date Last Done Comments Hepatitis C Virus (HCV) Screening 1975 Hepatitis B Immunization (1 of 3 - 19+ 3-dose series) 12/14/1994 Colonoscopy 12/14/2020 Colorectal Cancer Screening 12/14/2020 Influenza Immunization (#1) 05/05/202405/06, 06/08/2016, 07/03/2014 SARS-COV-2 Immunization ( season) 2024 Respiratory Syncytial Virus (RSV) Immunization (Adult) (1 - 1-dose 75+ series) 12/14/2050 DTaP/Tdap/Td Immunization Discontinued 02/07/2020 TdaP Immunization Completed 02/07/2020 Meningococcal Immunization (ACWY) Aged Out No longer eligible based on patient's age to complete this topic Pneumococcal Immunization Combined Aged Out No longer eligible based on patient's age to complete this topic Rotavirus Immunization Aged Out No lo nger eligible based on patient's age to complete this topic
--- OUTSIDE RECORDS SUMMARY | 2025-02-19 12:58 | XMS_ITS | Clinical Summary ---
Author Organization [facility] Address [address] [place] [id number] Care Team Providers Care Aviation Electronic Warfare Operator Name Role Phone Hector Ghotra DO Primary Care Provider Sloan Rayo MD Unavailable [phone] Allergies Active Allergy Reactions Criticality Noted Date [...] Pcv20 11/14/2023(Deferred : Patient Refused) Tdap 02/07/2020,05/07/2008 Surgical History Surgery Date Site/Laterality Comments COLONOSCOPY PORT PLACEMENT CHEST >5 YEARS 05/04/2018 N/A WISDOM TOOTH EXTRACTION VASECTOMY GASTRIC BYPASS ROTATOR CUFF REPAIR CARPAL TUNNEL RELEASE BONE BIOPSY HEMORRHOID SURGERY Medical History Medical History Date Comments Anemia Type 2 diabetes mellitus wit hout complication, without long-term current use of insulin (HCC) 09/27/2022 Family History Medical History Relation Name Comments Atrial fibrillation Father Diabetes Father Kidney failure Father Ataxia Mother Cancer Other Relation Name Status Comments Father Alive Mother Alive Other pancreas cx Social History Tobacco Use Types Packs/Day Years [...] on file 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 Gender Identity Not on file Sexual Orientation Not on file Obstetrics History Last Filed Vital Signs Vital Sign Reading [...] 06/17/2024 3:23 PM CDT Plan of Treatment Health Maintenance Due Date Last Done Comments Albumin Creatinine Ratio, Urine 1975 Hepatitis C Screening 1975 Dilated Eye Exam 1975 Foot Exam 1975 Hepatitis B Screening 12/14/1993 Pneumococcal vaccine <65 (1 of 2 - PCV) 12/14/1994 Depression Screening 11/13/2024 11/14/2023 Hemoglobin A1C 12/16/2024 06/17/2024, 09/27/2022 Influenza Vaccine (Season Ended) 2025 05/25/2019, 06/14/2018, 06/14/2018, Additional history exists Lipid Panel 06/17/2025 06/17/2024, 04/04, 08/25/2022 Regular Well Visit/Exam 18-64 06/17/2025 06/17/2024 eGFR 06/17/2025 06/17/2024, 10/11/2018 DTaP/Tdap/Td Vaccine (4 - Td or Tdap) 02/06/2030 02/07/2020, 05/07/2008, 05/07/2008 Colon Cancer Screening-Colonoscopy 12/14/20302020 Procedures Procedure Name Priority Date/Time Associated Diagnosis [...] was last reviewed 2021. Testing performed by: [facility], [address] [place] [address]., [address] Blood 06/17/2024 4:19 PM CDT 06/17/2024 5:07 PM CDT us Maria Antonia Verduzco NP LAB BLOOD ORDERABLES Final R esult [facility] [address] [facility] Department [place] [address] * Hemoglobin A1c (06/17/2024 4:19 PM CDT) Hgb A1C 5.4 4.0 - 5.6 % Comment:Testing performed by : [address] [address] Estimated Average Glucose 108 mg/dL [facility]MAN[facility] Comment: The ADA recommends reporting an estimated Average Glucose (eAG) with all Hemoglobin A1c results using the equation derived from a study of 507 normal and diabetic adults. Minority populations were underrepresented and children were not included. (Diabetes Care 31:1878-6283, 2008). The eAG is not equivalent to a fasting glucose. Testing performed by: [address] [address] Blood 06/17/2024 4:19 PM CDT 06/17/2024 5:07 PM CDT us Maria Antonia Verduzco PIN MACHINE OPERATOR LAB BLOOD ORDERABLES Final R esult [facility] [address] [facility] [place] [address] * (ABNORMAL) Lipid panel (06/17/2024 4:19 PM [...] last revised on 2018. Testing performed by: [address] [address] Triglycerides 124 <=149 mg/dL [facility]ERRMANN Comment: Interpretive Data Ages [...] last revised on 2018. Testing performed by: [address] [address] HDL 45 >=40 mg/dL [facility] Comment: Interpretive [...] last revised on 2018. Testing performed by: [address] [address] LDL, calculated 155(H) <=129 mg/dL [facility] Comment: Interpretive Data Ages < or = 19 years Acceptable: <110 mg/dL Borderline high: 110-129 mg/dL High: >or= 130 mg/dL Ages > or = 20 years Optimal: <100 mg/dL Near optimal: 100-129 mg/dL Borderline high: 130-159 mg/dL High: >160 mg/dL Calculated using the Yoel LDL-C estimating equation. This equation was implemented on 2024. Prior to this date LDL-C was estimated using the Friedewald equation. Literature References: 1. Expert Panel on Integrated Guidelines for Cardiovascular Health and Risk Reduction in Children and Adolescents. Pediatrics 2011;128:S213 2. NCEP Expert Panel. Circulation 2004;110:227 3. Yoel Hays al. DEVYN Cardiol. 2020 January 02;5(5):540-548. doi: 10.1001/[email or web address].2020.0013 Current Interpretive Data was last revised on 2024. Testing performed by: [address] [address] Non-HDL Cholesterol 177 mg/dL [facility] Comment: [...] last revised on 2018. Testing performed by: [address] [address] Chol/HDL ratio 5 [facility] Comment:Testing performed by : [address] [address] Blood 06/17/2024 4:19 PM CDT 06/17/2024 5:07 PM CDT Maria Antonia Verduzco PIN MACHINE OPERATOR LAB BLOOD ORDERABLES Final R esult [facility] [address] [facility] Department [place] [address] * Colonoscopy (12/14/2020) Anatomical Region Laterality Modality Other Historical Provider MD ENDOSCOPY PROCEDURES Tammie l Result from Last 3 Months or Most Recently Relevant to Health Maintenance Insurance [employer] [facility] Care Teams Aviation Electronic Warfare Operator Relationship Specialty Start Date End Date Hector Ghotra DO PCP - General Family Practice 09/26/18 Sloan aRyo MD Medical Oncologist/Medical Case Manager Hematology and Oncology 10/04/18
--- NOTE | 2025-03-12 11:34 | P.SLEEP_ITS ---
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 Has been on CPAP until November 2024 after losing 120+ pounds after gastric sleeve in September 2022. Sleep History The patient is a 49-year-old male that had a sleep study ordered by the pulmonary group for re-evaluation of sleep apnea after significant weight loss. The patient denies awakening from sleep short of breath. He rarely awakens at night with heartburn, belching or cough. He occasionally snores and is occasionally loud enough that others complain. She rarely has trouble sleeping when he has a cold. He denies waking up gasping for air throughout the night. He denies having breathing problems at night observed by himself or others. He denies sweating excessively at night. He denies having heart palpitations or irregular heartbeats during the night. He denies falling asleep during the day and while driving. He denies sleep paralysis, cataplexy and hypnagogic/ hypnopompic hallucinations. He denies having trouble at school or work due to sleepiness. He denies feeling afraid of going to sleep. He denies having nightmares. He occasionally remembers his dreams. He rarely has thoughts racing through his mind. He rarely feels sad, depressed or anxious. He denies having muscular tension. He denies noticing parts of his body jerk. He denies kicking during. He denies having crawling and aching feelings in his legs and denies having leg pain during the night before he denies grinding his teeth during sleep and denies awakening with morning jaw pain. He is occasionally bothered by pain during the day and occasionally awakened by pain during the night. He rarely wakes up feeling stiff in the morning. He denies waking up with sore or achy muscles. He occasionally wakes up with pain in the neck, spine and other joints. He goes to bed at 9:30 p.m. every night. It takes him 10-15 minutes to fall asleep. He wakes up once throughout the night at most to urinate and is able to fall back asleep quickly. He wakes up at 5:30 a.m. on weekdays and at 6:00 a.m. on the weekends. He typically gets 7-8 hours of sleep per night. He will stay in bed for 5-10 minutes after waking up in the morning. He currently lives with his and 2 children. He denies consuming any caffeinated beverages within 2 hours of bedtime. He denies engaging in physical exercise before bedtime. He denies reading and watching television before falling asleep. He denies taking naps in afternoon or evening. He consumes half a pot of coffee every morning. He denies tobacco, alcohol and recreational drug use. FORMERLY [facility], [facility] Past Medical History Medical History Obstructive sleep apnea GERD (gastroesophageal reflux disease) Seasonal allergies Surgical History Surgical History S/P gastric sleeve procedure Sep 2022. As of 01/2025 he's lost 120lb. Social History Social History Smoking status: Never smoker Medications Home Medications ?Medication ?Instructions ?Recorded ?Confirmed ?Type cyanocobalamin (vitamin B-12) 500 250 mcg PO DAILY 01/07/25 01/07/25 History mcg tablet (B-12 DOTS) eszopiclone 2 mg tablet (Lunesta) 2 mg PO ONCE #1 tablet 01/07/25 01/07/25 Rx multivitamin with minerals-ferrous tablet PO 01/07/25 01/07/25 History sulfate 4.5 mg iron tablet (One Daily Multivitamins with Minerals) omeprazole 40 mg capsule,delayed 40 mg PO DAILY 01/07/25 01/07/25 History release Sleep Procedure A full night polysomnogram using the Frequent Browser multi-channel system recorded the standard physiologic parameters including EEG, EOG, submentalis EMG, anterior tibialis EMG, EKG, body position, nasal and oral airflow using nasal pressure sensor and thermistor.? Respiratory parameters of chest and abdominal movements were recorded with Respiratory Inductance Plethysmography belts. Oxygen saturation was recorded by pulse oximetry. Video monitoring was also performed. Sleep stages, periodic limb movements, and EEG arousals were scored in 30 second epochs according to the criteria of the AASM Scoring Manual. The Apnea-Hypopnea Index was calculated using CMS guidelines for definition of hypopnea with 4% O2 desaturations while scoring respiratory events. Sleep Architecture The total recording time was 490.0 minutes.? The total sleep time was 458.5 minutes. Sleep latency was 3.8 minutes. REM latency was 122.0 minutes. Sleep efficiency was 93.6%. The patient had 24 awakenings for an awakening index of 3.1. Wake after sleep onset time was 27.5 minutes. The patient spent 43.5 minutes, 9.5% of total sleep time in Stage N1. The patient spent 257.5 minutes, 56.2% in Stage N2. The patient spent 82.5 minutes, 18.0% in Stage N3. The patient spent 75.0 minutes, 16.4% in Stage REM sleep. Respiratory Analysis The patient had 26 hypopneas, 8 mixed apneas, and 17 central apneas for an overall Apnea Hypopnea Index of 6.7. The REM Apnea Hypopnea Index was 31.2. The NREM Apnea Hypopnea Index was 3.1. The patient had a Central Apnea Hypopnea Index of 2.2. There was no evidence of Jose-Vaughn Respirations. Arousals There were 111 total arousals for an arousal index of 14.5. There were 48 spontaneous arousals for an index of 6.3. There were 11 arousals due to respiratory events for an index of 1.4. There were 21 arousals due to periodic limb movements for an index of 2.7.? There were 26 arousals due to isolated limb movements for an index of 3.4. Periodic Limb Movements The patient had 117 isolated limb movements with an index of 15.3. The patient had 202 periodic limb movements with an index of 26.4, which is elevated (normal < 15). Patient had a total of 319 limb movements with a total limb movement index of 41.7. Oximetry Data The patient had an average oxygen saturation of 92.5% in sleep with a minimum oxygen saturation of 81.0% and a maximum oxygen saturation of 97.0%. The patient had 37 oxygen desaturations that were 4% or greater resulting in an Oxygen Desaturation Index of 4.8.? The patient spent 4.2 minutes, 0.9% of total sleep time with an oxygen saturation below 88%. Snoring Profile Moderate snoring was present throughout the study. Cardiac Profile The EKG showed normal sinus rhythm. No arrhythmias or premature beats were seen. The patient had an average pulse rate of 65.9 bpm with a minimum pulse of rate of 52.0 bpm and a maximum pulse rate of 95.0 bpm.? EEG Profile No signs of seizure activity seen. Assessment and Plan Assessment and Plan (1) Obstructive sleep apnea: Code(s): G47.33 - Obstructive sleep apnea (adult) (pediatric) Status: Acute Assessment and Plan: The patient had an overall AHI of 6.7 with desaturation down to 81%. This is consistent with mild sleep apnea. Due to the patient's periodic limb movement disorder, he qualifies for treatment. Due to the majority of the patient's apneas being central in nature, he is not an ideal candidate for AutoPAP. AutoPAP can increase the frequency and severity of central apneas. I recommend t hat the patient have a CPAP Titration with the use of a hypnotic to ensure we obtain enough sleep data and find an optimal pressure setting. (2) PLMD (periodic limb movement disorder): Code(s): G47.61 - Periodic limb movement disorder Status: Acute Assessment and Plan: The patient had a significant number of limb movements during the study with the majority being periodic in nature. Approximately 10% of the periodic limb movements caused arousals in the patient's sleep. The patient's sleep history does not suggest Restless Leg Syndrome. I recommend that the patient have a serum ferritin drawn for evaluation of iron deficiency anemia. If the patient has a serum ferritin less than 75 ng/mL, I recommend starting a daily iron supplement and a Vitamin C supplement for better absorption. If the serum ferritin is greater than 75 ng/mL, I recommend starting a dopamine agonist and titrating the dose until symptoms resolve. There are nonpharmacological methods to treat limb movements including daily exercise, stretching calf muscles before bed, avoiding excessive amounts of caffeine and alcohol, vitamin B supplementation, magnesium lotion massaged into legs before bed, and use of a weighted blanket. Data The data obtained during this sleep study is adequate for interpretation. Certification This sleep study has been reviewed by a board certified sleep medicine physician.
[2025-03-12 13:58] VITALS: BMI 29.8
== END 2025-02-20 06:23 | disposition home or self-care (01) ==
LOC: ANHCSM 11:10
PROVIDERS: PCP Family Medicine; Visit Provider Physician Assistant
DX: G47.33 Obstructive sleep apnea (adult) (pediatric) (principal); Z90.3 Acquired absence of stomach [part of]; G47.61 Periodic limb movement disorder
CPT/HCPCS: 95810

== ENCOUNTER 2025-06-30 12:14 | Emergency (ER) | payer OTHER, SELFPAY ==
--- NOTE | ~2025-06-30 | XR_ITS ---
Examination: XR chest 2V Clinical History: dizzy Comparison: 09/01/2021 Technique: PA and Lateral Findings: Cardiomediastinal silhouette normal size and configuration. Lungs clear. No acute bony abnormality. IMPRESSION: 1. No acute cardiopulmonary findings. Reviewed, dictated and finalized at location R.
--- OUTSIDE RECORDS SUMMARY | 2025-06-30 09:45 | XMS_ITS | Encounter Summary ---
Author Organization [facility] Healthcare Address [address] [place] [address] Care Team Providers Care Casting Operator Name Role Phone Hector Ghotra DO Primary Care Provider Sloan Rayo MD Unavailable [phone] Reason for Referral * Procedure (Routine) - Authorized Specialty Diagnoses / Procedures Referred By Holly t Referred To Contact Diagnoses Impacted cerumen of left ear Procedures Ear Cerumen Removal Niharika Ellis PA [address] [place] [address] [address] [place] [address] Phone: tel: fax: [facility] Referral ID Status Reason Start Date Expiration Date V isits Requested Visits Authorized [id number] Authorized 06/30/2025 07/30/2026 1 1 Reason for Visit * Reason Comments Dizziness Started last night, when he was laying down, and closed his eye, it is not constant, it happens when he looks down, turns his head, close his eyes and turn his head to the left, Encounter Details Date Type Department Care Team (Late Contact Info) Description 06/30/2025 9:45 AM CDT Office Visit [facility] Convenient Care at [address] [address] Niharika Ellis PA [address] [place] [address] [address] [place] [address] Dizziness (Primary Dx); Impacted cerumen of left ear Social History Tobacco Use Types Packs/Day Years Used Date Smoking Tobacco: Never Smokeless Tobacco: Never Alcohol Use Standard Drinks/Week Comments Yes 0 [...] staff should administer the PHQ-9) 0 11/14/2023 Sex and Gender Information Value Date Recorded Sex Assigned at Not on file 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 Gender Identity Not on file Sexual Orientation Not on file documented as of this encounter Last Filed Vital Signs Vital Sign Reading Time Taken Comments Blood Pressure 146/96 06/30/2025 10:16 AM CDT Pulse 77 06/30/2025 9:45 AM CDT Temperature 36.7 C (98 F) 06/30/2025 9:45 AM CDT Respiratory Rate 18 06/30/2025 9:45 AM CDT Oxygen Saturation 98% 06/30/2025 9:45 AM CDT Inhaled Oxygen Concentration - - Weight 99.2 kg (218 lb 11.2 oz) 06/30/2025 9:45 AM CDT Height 181.6 cm (5' 11.5) 06/30/2025 9:45 AM CD T Body Mass Index 30.08 06/30/2025 9:45 AM CDT documented in this encounter Progress Notes * Niharika Ellis PA - 06/30/2025 9:45 AM CDTAssociated Order(s): Ear Cerumen Removal Post-Procedure Diagnose(s): Impacted cerumen of left ear Images from the original note were not included. Subjective/Objective Patient ID: Clifton Sahni is a 49 y.o. male. Chief Complaint Dizziness (Started last night, when he was laying down, and closed his eye, it is not constant, it happens when he looks down, turns his head, close his eyes and turn his head to the left, ) Pt presents w/ dizziness onset last night. Started when getting into bed last night. Described as room spinning, worse with certain movements, lasts less than a minute. No cp, sob. Has never had this happen before. No URI symptoms. Review of Systems All systems reviewed and are negative or non contributory for this patient's presentation today other than as stated in the HPI . Physical Exam Constitutional: General: He is not in acute distress. HENT: Head: Normocephalic and atraumatic. Left Ear: Tympanic membrane, ear canal and external ear normal. There is impacted cerumen. Mouth/Throat: Pharynx: Oropharynx is clear. Eyes: Pupils: Pupils are equal, round, and reactive to light. Cardiovascular: Rate and Rhythm: Normal rate. Pulmonary: Effort: Pulmonary effort is normal. Musculoskeletal: General: Normal range of motion. Cervical back: Normal range of motion. Skin: General: Skin is warm and dry. Neurological: General: No focal deficit present. Mental Status: He is alert and oriented to person, place, and time. Psychiatric: Mood and Affect: Mood normal. Behavior: Behavior normal. Vitals: 06/30/25 0945 06/30/25 1016 BP: 156/94 146/96 Pulse: 77 Resp: 18 Temp: 36.7 ??C (98 ??F) SpO2: 98% Weight: 99.2 kg (218 lb 11.2 oz) Height: 181.6 cm (5' 11.5) Ear Cerumen Removal Performed by: Niharika Ellis PA Authorized by: Niharika Ellis PA Consent Given by: Patient Verbal consent obtained: Yes Location: L ear L ear cerumen impacted?: Yes L ear method of removal: Instrumentation and magnification L ear instrumentation: Curette L ear magnification: Otoscope Inspection: TM intact Assessment/Plan -dizziness acute onset last night, no history of prior dizzy episodes -symptoms consistent with possible BPPV however unable to rule out cardiac or neurologic etiology in this setting -does have hx of HTN and DM which improved after he had 120lb weight loss -notes his blood pressure is high today at 156/94, typically in the 120s since losing weight, pt concerned about the reading today -pt referred to ED for full evaluation and to r/o cardiac/neurologic etiology of the dizziness Diagnoses and all orders for this visit: Dizziness (Primary) Impacted cerumen of left ear Other orders - Ear Cerumen Removal No results found for this or any previous visit (from the past 4 hours). Disposition Treatment plan including expectations, follow up, and return precautions discussed with patient/parent, verbalizes understanding. Medication dosage, use, and potential adverse reactions discussed with patient/parent. Advised to follow up with PCP if symptoms do not resolve as expected or sooner if condition worsens. Signs/symptoms warranting ER evaluation reviewed. Patient and/or guardian was given an opportunity to ask questions, questions answered. RADHA Ramirez 06/30/25 10:43 AM Cosigned by Darrel Rosenthal MD at 06/30/2025 11:05 AM CDT documented in this encounter Plan of Treatment Not on file documented as of this encounter Procedures Procedure Name Priority Date/Time Associated Diagnosis Comments ME REMOVAL IMPACTED CERUMEN INSTRUMENTATION UNILAT Routine 06/30/2025 9:45 AM CDT Impacted cerumen of left ear documented in this encounter Results * ME REMOVAL IMPACTED CERUMEN INSTRUMENTATION UNILAT (06/30/2025 9:45 AM CDT) Narrative Darrel Rosenthal MD - 06/30/2025 9:45 AM CDT Darrel Rosenthal MD 06/30/2025 11:05 AM Ear Cerumen Removal Performed by: Niharika Ellis PA Authorized by: Niharika Ellis PA Consent Given by: Patient Verbal consent obtained: Yes Location: L ear L ear cerumen impacted?: Yes L ear method of removal: Instrumentation and magnification L ear instrumentation: Curette L ear magnification: Otoscope Inspection: TM intact us Niharika GARCIA IN CLINIC/BEDSIDE ORDERA BLES Final Result documented in this encounter Visit Diagnoses Diagnosis Dizziness- Primary Dizziness and giddiness Impacted cerumen of left ear Impacted cerumen documented in this encounter Care Teams Casting Operator Relationship Specialty Start Date End Date Hector Ghotra DO PCP - General Family Practice 09/26/18 Sloan Rayo MD Medical Oncologist/Artist Model Hematology and Oncology 10/04/18 documented as of this encounter
--- OUTSIDE RECORDS SUMMARY | 2025-06-30 09:45 | XMS_ITS | Encounter Summary ---
Author Organization [facility] Healthcare Address [address] [place] [address] Care Team Providers Care Magnetic Tape Typewriter Operator Name Role Phone Hector Ghotra DO Primary Care Provider Sloan Rayo MD Unavailable [phone] Reason for Referral * Procedure (Routine) - Authorized Specialty Diagnoses / Procedures Referred By Holly t Referred To Contact Diagnoses Impacted cerumen of left ear Procedures Ear Cerumen Removal Niharika Ellis PA [address] [place] [address] [address] [place] [address] Phone: tel: fax: [facility] Referral ID Status Reason Start Date Expiration Date V isits Requested Visits Authorized [id number] Authorized 06/30/2025 07/30/2026 1 1 Reason for [...] Description 06/30/2025 9:45 AM CDT Office Visit [facility] Convenient Care at [address] [address] Niharika Ellis PA [address] [place] [address] [address] [place] [address] Dizziness (Primary Dx); Impacted cerumen [...] on file 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[employer] Gender Identity Not on file Sexual Orientation [...] Procedure Name Priority Date/Time Associated Diagnosis Comments [place] REMOVAL IMPACTED CERUMEN INSTRUMENTATION UNILAT Routine 06/30/2025 9:45 AM CDT Impacted cerumen of left ear documented in this encounter Results * [place] REMOVAL IMPACTED CERUMEN INSTRUMENTATION UNILAT (06/30/2025 9:45 [...] cerumen documented in this encounter Care Teams Magnetic Tape Typewriter Operator Relationship Specialty Start Date End Date Hector Ghotra DO PCP - General Family Practice 09/26/18 Sloan Rayo MD Medical Oncologist/Backend Java Developer Hematology and Oncology 10/04/18 documented as of this encounter
[2025-06-30 12:39] VITALS: BP 135/81; PULSE 85; RESP 18; TEMP 36.5; O2SAT 100
--- NOTE | 2025-06-30 12:39 | ECG_ITS ---
Test Date: 2025-06-30 12:46:50 Measurements Intervals [place] Rate: 80 P: 51 [place]: 165 QRS: 32 QRSD: 98 T: 43 QT: 369 QTc: 428 Interpretive Statements SINUS RHYTHM DELAYED PRECORDIAL R/S TRANSITION BORDERLINE ST-T WAVE ABNORMALITY- INFERIOR LEADS BASELINE ARTIFACT- I, II, AVR, AVL, V4-V6 BORDERLINE ECG No previous ECG available for comparison Electronically Signed On 06-30-2025 12:56:59 CDT by Geremias Canales D.O.
[2025-06-30 12:40] VITALS: BP 135/81; PULSE 90; RESP 12; O2SAT 99
[2025-06-30 13:01] LABS: Hematocrit 43.6 % (42.0-52.0); Hemoglobin 15.2 g/dL (14.0-18.0); Immature Granulocyte Percent A 0.3 % (0-0.5); Lymphocytes Absolute Auto 1.52 K/mm3 (0.9-3.2); Mean Corpuscular HGB Conc 34.9 g/dl (32-36); Mean Corpuscular Hemoglobin 30.8 pg (26-34); Mean Corpuscular Volume 88.3 fl (80-100); Nucleated Red Blood Cells Absolute Auto 0.000 K/mm3 (0.0-0.012); Nucleated Red Blood Cells Perc 0.0 % (0.0-0.2); Platelet Count Result 234 k/mm3 (150-375); Red Blood Count 4.94 M/mm3 (4.6-6.20); White Blood Count 5.8 K/mm3 (4.5-10.0)
[2025-06-30] MEDS: MECLIZINE HCL 25 MG TABLET PO (13:03)
[2025-06-30] MEDS: SODIUM CHLORIDE 0.9% IV 1,000 ML 999 ML IV CONT (13:03)
[2025-06-30 13:15] LABS: Alanine Aminotransferase 25 U/L (6-50); Albumin Level 5.1 g/dL (3.5-5.1); Alkaline Phosphatase 80 U/L (38-126); Anion Gap 9 mmol/L (4-12); Aspartate Amino Transferase 28 U/L (17-59); Bilirubin,Total 0.6 mg/dL (0.2-1.3); Blood Urea Nitrogen 19 mg/dL (9-20); Calcium 9.6 mg/dL (8.4-10.2); Carbon Dioxide 31 mmol/L (22-30); Chloride 100 mmol/L (98-107); Estimated CRCL calculation 114 ml/min; Estimated Glomerular Filt Rate > 60; Glucose 114 mg/dL (65-110); Potassium 3.9 mmol/L (3.4-5.0); Sodium 140 mmol/L (137-145); Total Protein 8.3 g/dL (6.3-8.2)
--- OUTSIDE RECORDS SUMMARY | 2025-06-30 13:37 | XMS_ITS | Encounter Summary ---
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 Gender Identity Not on file Sexual Orientation Not on file documented as of this encounter Plan of Treatment Not on file documented as of this encounter Procedures Procedure Name Priority Date/Time Associated Diagnosis Comments SLEEP LAB/STUDY - RESULT 02/19/2025 documented in this encounter Results * SLEEP LAB/STUDY - RESULT (02/19/2025) us Provider Scanning Final Result documented in this encounter Visit Diagnoses Not on filedocumented in this encounter Care Teams Cable Splicing Technician Relationship Specialty Start Date End Date Hector Ghotra DO PCP - General Family Practice 09/26/18 Sloan Rayo MD Medical Oncologist/Social Service Manager Hematology and Oncology 10/04/18 documented as of this encounter
--- OUTSIDE RECORDS SUMMARY | 2025-06-30 13:38 | XMS_ITS | Clinical Summary ---
Author Organization [facility] Address [address] [place] [address] Care Team Providers Care Rent And Miscellaneous Remittance Clerk Name Role Phone Brandin Hector Root DO Primary Care Provider Yoni Perez MD Unavailable [phone] Allergies Active Allergy Reactions Criticality Noted [...] complication, without long-term current use of insulin 10/12/2022 Morbid obesity 04/04/2022 Mild mood disorder [...] Obstructive sleep apnea 10/02/2013 Reactive airway disease 10/02/2013 Depression 09/29/2013 Gout 09/29/2013 Hypogonadism, testicular [...] 36.6 C (97.8 F) 10/22/2021 10:11 AM RAILROAD SIGNAL OPERATOR Respiratory Rate 16 10/30/2018 4:02 PM RAILROAD SIGNAL OPERATOR Oxygen Saturation 97% 10/22/2021 10:11 AM RAILROAD SIGNAL OPERATOR Inhaled Oxygen Concentration - - Weight 112.9 kg (249 lb) 04/11/2023 2:02 PM CDT Height 181.6 cm (5' 11.5) 04/11/2023 2:02 PM CD T Body Mass Index 34.24 04/11/2023 2:02 PM CDT Plan of Treatment Health Maintenance Due Date Last Done Comments Colorectal Cancer Screening Colonoscopy (10 Years) 1975 Kidney Health Evaluation 1975 Diabetes: Retinopathy Eye Exam 12/14/1993 Hepatitis C 12/14/1993 Hepatitis A Vaccines (1 of 2 - Risk 2-dose series) 12/14/1994 Hepatitis B Vaccines (1 of 3 - 19+ 3-dose series) 12/14/1994 Pneumococcal Vaccine: Pediatrics (0 to 5 Years) and At-Risk Patients (6 to 49 Years) (1 of 2 - PCV) 12/14/1994 Hemoglobin A1C 03/27/2023 09/27/2022 Annual Physical 04/11/2024 04/11/2023, 08/0 09/2021, 02/26/2021, Additional history exists Lipid Panel 04/15/2024 04/15/2023, 08/05, 08/25/2022, Additional history exists COVID-19 Vaccine ( season) 2025 Influenza Adult (#1) 2025 05/25/2019, 06/14/2018, 06/04/2018, Additional history exists DTaP, Tdap and Td Vaccines (3 - [...] Health Maintenance Results * LIPID PANEL (04/15/2023) us Hector Ghotra DO LABORATORY Final Resul t [employer] [address] [place] [address], [place] [phone] from Last 3 Months or Most Recently Relevant to Health Maintenance Insurance [facility] Care Teams Rent And Miscellaneous Remittance Clerk Relationship Specialty Start Date End Date Hector Ghotra DO PCP - General FAMILY PRACTICE 10/30/18 [place] [address] [place] [address] ORTHOPAEDIC SURGERY 04/14/23
--- OUTSIDE RECORDS SUMMARY | 2025-06-30 13:38 | XMS_ITS | Clinical Summary ---
Author Organization [facility] Care Team Providers Care Curator Name Role Phone Unavailable Primary Care Provider Unavailabl e Social History Tobacco Use Types Packs/Day Years Used Date Smoking Tobacco: Never Assessed Sex and Gender Information Value Date Recorded Sex Assigned at Not on file Legal Sex Male 2:22 PM VESSEL SLAGMAN Gender Identity Not on file Sexual Orientation Not on file Plan of Treatment Health Maintenance Due Date Last Done Comments Hepatitis C Virus (HCV) Screening 1975 Hepatitis B Immunization (1 of 3 - 19+ 3-dose series) 12/14/1994 Cologuard 12/14/2020 Colonoscopy 12/14/2020 Colorectal Cancer Screening 12/14/2020 Immunochemical Fecal Occult Blood 12/14/2020 Influenza Immunization (#1) 05/05/202505/06, 06/08/2016, 07/03/2014 SARS-COV-2 Immunization ( season) 2025 Respiratory Syncytial Virus (RSV) Immunization (Adult) (1 - 1-dose 75+ series) 12/14/2050 DTaP/Tdap/Td Immunization Discontinued 02/07/2020 TdaP Immunization Completed 02/07/2020 Human Papillomavirus (HPV) Immunization Aged Out No longer eligible based on patient's age to complete this topic Meningococcal Immunization (ACWY) Aged Out No longer eligible based on patient's age to complete this topic Pneumococcal Immunization Combined Aged Out No longer eligible based on patient's age to complete this topic Rotavirus Immunization Aged Out No lo nger eligible based on patient's age to complete this topic
--- OUTSIDE RECORDS SUMMARY | 2025-06-30 13:38 | XMS_ITS | Clinical Summary ---
Author Organization [facility] Address [address] [place] [address] Phone Care Team Providers Care Sales Team Manager Name Role Phone Hector Ghotra DO Primary [...] daily. Active fluticasone propionate (FLONASE) 50 mcg/spray [place], Suspension nasal inhaler Administer 2 Sprays in [...] 60 mL 300 mL 09/27/2022 12:09 PM DIVERSIONAL THERAPIST'S ASSISTANT 3 Active ondansetron (ZOFRAN ODT) 4 mg Tablet, Rapid Dissolve Dissolve 1 tablet on top of tongue, then swallow with saliva every 6 hours as needed for Nausea/Vomiting . Tablet 09/27/2022 12:09 PM DIVERSIONAL THERAPIST'S ASSISTANT Active Active Problems Problem Noted Date Diagnosed [...] Comments Blood Pressure 141/74 09/27/2022 8:16 AM DIVERSIONAL THERAPIST'S ASSISTANT Pulse 75 09/27/2022 7:29 AM DIVERSIONAL THERAPIST'S ASSISTANT Temperature 36.8 C (98.3 F) 09/27/2022 7:29 AM DIVERSIONAL THERAPIST'S ASSISTANT Respiratory Rate 16 09/27/2022 7:29 AM DIVERSIONAL THERAPIST'S ASSISTANT Oxygen Saturation 97% 09/27/2022 7:29 AM DIVERSIONAL THERAPIST'S ASSISTANT Inhaled Oxygen Concentration - - Weight 127.4 kg (280 lb 12.8 oz) 09/26/2022 3:19 PM DIVERSIONAL THERAPIST'S ASSISTANT Height 180.3 cm (5' 11) 09/26/2022 3:19 PM DIVERSIONAL THERAPIST'S ASSISTANT Body Mass Index 39.16 09/26/2022 3:19 PM DIVERSIONAL THERAPIST'S ASSISTANT Plan of Treatment Health Maintenance Due Date [...] 6 MONTHS 03/27/2023 09/27/2022 INFLUENZA VACCINE (#1) 2025 9, 06/14/2018, 06/14/2018, Additional history exists COLORECTAL SCREENING 05/03/2028 05/03/2018 Colorectal Cancer Screening 05/03/2028 DTAP/TDAP/TD VACCINES (3 - T d or Tdap) 02/06/2030 02/07/2020, 05/07/2008, 05/07/2008 Medical Devices Implanted Type Area Vet Assistant Device Identifier Shelf Expiration Date Model / Serial / Lot Seamguard Endogia 60 Blk [id number] - [id number] Implanted:Qt y: 1 on 09/26/2022 by Manpreet Pastrana MD at [facility] Biological N/A: Stomach [employer] [id number] 05/11/2025 12BSGTRI 60B / / [id number] Seamguard Endogia 60 Blk [id number] - [id number] Implanted:Qt y: 1 on 09/26/2022 by Manpreet Pastrana MD at [facility] Biological N/A: Stomach [employer] [id number] 05/11/2025 12BSGTRI 60B / / [id number] Seamguard Endogia 60 Prpl [id number] - [id number] Implanted:Qt y: 1 on 09/26/2022 by Manpreet Pastrana MD at [facility] Biological N/A: Stomach [employer] [id number] 05/30/2025 12BSGTRI 60P / / [id number] Seamguard Endogia 60 Prpl [id number] - [id number] Implanted:Qt y: 1 on 09/26/2022 by Manpreet Pastrana MD at [facility] Biological N/A: Stomach [employer] [id number] 05/30/2025 12BSGTRI 60P / / [id number] Seamguard Endogia 60 Blk [id number] - [id number] Implanted:Qt y: 1 on 09/26/2022 by Manpreet Pastrana MD at [facility] Biological N/A: Stomach [employer] [id number] 04/13/2025 12BSGTRI 60B / / [id number] Procedures Procedure Name Priority Date/Time Associated Diagnosis Comments HEMOGLOBIN A1C Routine 09/27/2022 4:44 AM DIVERSIONAL THERAPIST'S ASSISTANT from Last 3 Months or Most Recently Relevant to Health Maintenance Results * (ABNORMAL) HEMOGLOBIN A1C (09/27/2022 4:44 AM DIVERSIONAL THERAPIST'S ASSISTANT) HEMOGLOBIN A1C 8.9(H) <=5.6 % 09/27/2022 5:20 AM DIVERSIONAL THERAPIST'S ASSISTANT [facility] EST. AVG GLUCOSE, A1C 209 mg/dL 09/27/2022 5:20 AM [facility] Blood Venipuncture / Unknown 09/27/2022 4:44 AM DIVERSIONAL THERAPIST'S ASSISTANT 09/27/2022 5:01 AM DIVERSIONAL THERAPIST'S ASSISTANT Narrative [facility] - 09/27/2022 5:20 AM DIVERSIONAL THERAPIST'S ASSISTANT HGB A1C INTERPRETATION NORMAL: <5.7% PRE-DIABETES: 5.7 - 6.4% DIABETES: 6.5% OR GREATER Leah MERCEDESP CHEMISTRY ORDERABLES Final Resul t [facility] # [id number] [facility] [address] [place] [address] from Last 3 Months or Most Recently Relevant to Health Maintenance Insurance BCBS BLUE ACCESS/TRUE BLUE PPO RX [employer] Commercial Advance Directives For more information, please contact: [phone] * Full Code (Latest Code Status on File) Date Activated Date Inactivated Comments 09/26/2022 11:09 AM 09/27/2022 2:55 PM * Full Code Date Activated Date Inactivated Comments 09/26/2022 9:29 AM 09/26/2022 11:09 AM * Full Code Date Activated Date Inactivated Comments 08/05/2022 9:26 AM 08/05/2022 2:06 PM Care Teams Sales Team Manager Relationship Specialty Start Date End Date Hector Ghotra DO PCP - General Family Practice 08/05/22
--- OUTSIDE RECORDS SUMMARY | 2025-06-30 13:38 | XMS_ITS | Clinical Summary ---
Author Organization [facility] Address [address] [place] [address] Care Team Providers Care Cmm Technician Name Role Phone Hector Ghotra DO Primary Care Provider Sloan Rayo MD Unavailable [phone] Allergies Active Allergy Reactions Criticality Noted Date [...] times a day 60 tablet 11 4 Active Active Problems Problem Noted Date Diagnosed [...] Morbid obesity 04/04/2022 06/17/2024 Anemia 10/01/2018 11/14/2023 Encounters Date Type Department Care Team Description 06/30/2025 9:45 AM CDT Office Visit [facility] at [address] [address] Niharika Ellis PA Dizziness (Primary Dx); Impacted cerumen of left ear from Last 3 Months Immunizations Immunization Administration Dates Next Due DTaP, [...] on file Legal Sex Male 8:07 PM TIN CAN FEEDER Gender Identity Not on file Sexual Orientation [...] Mass Index 30.08 06/30/2025 9:45 AM CDT Plan of Treatment Health Maintenance Due Date Last Done Comments Albumin Creatinine Ratio, Urine 1975 Hepatitis C Screening 1975 Dilated Eye Exam 1975 Foot Exam 1975 Hepatitis B Screening 12/14/1993 Pneumococcal vaccine <65 (1 of 2 - PCV) 12/14/1994 Depression Screening 11/13/2024 11/14/2023 Hemoglobin A1C 12/16/2024 06/17/2024, 09/27/2022 Influenza Vaccine (#1) 2025 9, 06/14/2018, 06/14/2018, Additional history exists Lipid Panel 06/17/2025 06/17/2024, 04/04, 08/25/2022 Regular Well Visit/Exam 18-64 06/17/2025 06/17/2024 eGFR 06/17/2025 06/17/2024, 10/11/2018 DTaP/Tdap/Td Vaccine (4 - Td or Tdap) 02/06/2030 02/07/2020, 05/07/2008, 05/07/2008 Colon Cancer Screening-Colonoscopy 12/14/20302020 Procedures Procedure Name Priority Date/Time Associated Diagnosis Comments [place] REMOVAL IMPACTED CERUMEN INSTRUMENTATION UNILAT Routine 06/30/2025 9:45 AM CDT Impacted cerumen of left ear EGFR Routine 06/17/2024 4:19 PM CDT HEMOGLOBIN A1C Routine 06/17/2024 4:19 PM CDT LIPID PANEL Routine 06/17/2024 4:19 PM CDT COLONOSCOPY Routine 12/14/2020 from Last 3 Months or Most Recently Relevant to Health Maintenance Results * [place] REMOVAL IMPACTED CERUMEN INSTRUMENTATION UNILAT (06/30/2025 9:45 [...] L ear magnification: Otoscope Inspection: TM intact Niharika GARCIA IN CLINIC/BEDSIDE ORDERA BLES Final Result * eGFR (06/17/2024 4:19 PM CDT) eGFR [...] was last reviewed 2021. Testing performed by: [address] [address] Blood 06/17/2024 4:19 PM CDT 06/17/2024 5:07 PM CDT Maria Antonia Verduzco STAGE SETTINGS PAINTER LAB BLOOD ORDERABLES Final R esult Performing Organization Address [facility] de Phone Number [place] [id number] [facility] [place] [address] * Hemoglobin A1c (06/17/2024 4:19 PM CDT) [facility] Hgb A1C 5.4 4.0 - 5.6 % Comment:Testing performed by : [address] [address] Estimated Average Glucose 108 mg/dL [facility] Comment: The ADA recommends reporting an estimated Average Glucose (eAG) with all Hemoglobin A1c results using the equation derived from a study of 507 normal and diabetic adults. Minority populations were underrepresented and children were not included. (Diabetes Care 31:6025-5971, 2008). The eAG is not equivalent to a fasting glucose. Testing performed by: [address] [address] Blood 06/17/2024 4:19 PM CDT 06/17/2024 5:07 PM CDT Maria Antonia Verduzco NP LAB BLOOD ORDERABLES Final R esult Performing Organization Address [facility] Co de Phone Number [facility] [address] [facility] [place] [address] * (ABNORMAL) Lipid panel (06/17/2024 4:19 PM [...] Pediatrics 2011;128:S213 2. NCEP Expert Panel. Circulation 2003;110:227 Current Interpretive Data was last revised on 2018. Testing performed by: [address] [address] Triglycerides 124 <=149 mg/dL [facility] Comment: Interpretive Data Ages < or = [...] Pediatrics 2011;128:S213 2. NCEP Expert Panel. Circulation 2003;110:227 Current Interpretive Data was last revised on 2018. Testing performed by: [address] [address] HDL 45 >=40 mg/dL [facility] Comment: Interpretive Data Ages < or = 19 years Acceptable: >45 mg/dL Borderline low: 40-45 mg/dL Low: <40 mg/dL Ages > or = 20 years Desirable: >or= 60 mg/dL Low: <40 mg/dL Literature References: 1. Expert Panel on Integrated Guidelines for Cardiovascular Health and Risk Reduction in Children and Adolescents. Pediatrics 2011;128:S213 2. NCEP Expert Panel. Circulation 2003;110:227 Current Interpretive Data was last revised on 2018. Testing performed by: [address] [address] LDL, calculated 155(H) <=129 mg/dL [facility] HERRMANN Comment: Interpretive Data Ages [...] NCEP Expert Panel. Circulation 2004;110:227 3. Yoel Root et al. DEVYN Cardiol. 2019January 02;5(5):540-548. doi: 10.1001/[email or web address] Current Interpretive Data was last revised on 2024. Testing performed by: [address] [address] Non-HDL Cholesterol 177 mg/dL [facility] HERRMANN Comment: [...] last revised on 2018. Testing performed by: [address] [address] Chol/HDL ratio 5 [facility] Comment:Testing performed by : [address] [address] Blood 06/17/2024 4:19 PM CDT 06/17/2024 5:07 PM CDT Maria Antonia Verduzco STAGE SETTINGS PAINTER LAB BLOOD ORDERABLES Final R esult [facility] [address] [facility] Department [place] [address] * Colonoscopy (12/14/2020) Anatomical Region Laterality Modality Other Historical Provider ENDOSCOPY PROCEDURES Tammie l Result from Last 3 Months or Most Recently Relevant to Health Maintenance Insurance CIGNA CIGNA Care Teams Cmm Technician Relationship Specialty Start Date End Date Hector Ghotra DO PCP - General Family Practice 09/26/18 Sloan Rayo MD Medical Oncologist/Dressmaker Helper Hematology and Oncology 10/04/18
--- OUTSIDE RECORDS SUMMARY | 2025-06-30 13:38 | XMS_ITS | Clinical Summary ---
Author Organization [facility] Address [address] [place] [address] Care Team Providers Care Bicycle Repairman Name Role Phone Charlee Hicks RN Unavailable [phone] Hector Ghotra DO Primary Care Provider [phone] Source Comments [facility],non-owned Affiliates and Associated Physician Practices is amultiple site organization consisting of ambulatory clinics and hospital sitesin [place], [place], [place] and [place]. This disclosure is being madepursuant to the Care Everywhere program and may not contain all information available regarding this patient. Last updated 18.[facility] Allergies No known active allergies Medications * [...] Comments Blood Pressure 143/77 09/06/2018 9:31 AM INTEL ANALYST Pulse 96 09/06/2018 9:31 AM INTEL ANALYST Temperature 36.7 C (98.1 F) 08/21/2018 1:25 PM INTEL ANALYST Respiratory Rate 18 08/21/2018 1:25 PM INTEL ANALYST Oxygen Saturation 96% 09/06/2018 9:31 AM INTEL ANALYST Inhaled Oxygen Concentration 21% 08/01/2018 3 :25 PM INTEL ANALYST Weight 140.2 kg (309 lb) 09/06/2018 9:31 AM INTEL ANALYST Height 177.8 cm (5' 10) 09/06/2018 9:31 AM INTEL ANALYST Body Mass Index 44.34 09/06/2018 9:31 AM INTEL ANALYST Plan of Treatment Health Maintenance Due Date [...] 05/05/2021 8, 05/04/2018, 05/03/2018, Additional history exists DEPRESSION SCREENING 09/04/2024 COVID-19 VACCINE ( - season) 2025 INFLUENZA VACCINE (#1) 2025 06/14/2018 ZOSTER VACCINE (1 of 2) [...] - 26 mg/dL 05/05/2018 2:57 AM CDT [facility] Creatinine 1.0 0.6 - 1.2 mg/dL 05/05/2018 2:57 AM [facility] Sodium 138 136 - 145 mmol/L 05/05/2018 2:57 AM [facility] Potassium 3.5 3.5 - 4.5 mmol/L 05/05/2018 2:57 AM [facility] Chloride 103 98 - 107 mmol/L 05/05/2018 2:57 AM [facility] CO2 22 22 - 29 mmol/L 05/05/2018 2:57 AM [facility] Glucose 167(H) 70 - 115 mg/dL 05/05/2018 2:57 AM [facility] Calcium 8.9 8.4 - 10.2 mg/dL 05/05/2018 2:57 AM [facility] Anion Gap 17 8 - 18 05/05/2018 2:57 AM [facility] BUN/Creatinine Ratio 14 7 - 23 05/05/2018 2:57 AM [facility] Osmolality Calculated 290 270 - 300 mOsm/kg 05/05/2018 2:57 AM [facility] eGFR >60 >60 mL/min/1.7 3 m2 05/05/2018 2:57 AM [facility] Blood BLOOD SPECIMEN / Unknown Lab Venipuncture / Unknown 05/05/2018 2:03 AM CDT 05/05/2018 2:33 AM CDT Tori Sweeney MD LAB - CHEMISTRY ORDERABLES Tammie thurman Result Performing Organization Address City/State/[facility] Co de Phone Number [place] [phone] [address] [phone] * ENDOSCOPY, COLON, DIAGNOSTIC (05/03/2018 10:19 AM [...] bowel preparation was evaluated using the BBPS (Grawn Bowel Preparation Scale) with scores of: Right [...] non-davis portions. Procedure Code(s): --- Professional --- 93180, Colonoscopy, flexible; diagnostic, including collection of specimen(s) by brushing or washing, when performed (separate procedure) Diagnosis Code(s): --- Professional --- K64.9, Unspecified hemorrhoids K52.9, Noninfective gastroenteritis and colitis, unspecified CPT copyright 2016 [employer]. All rights reserved. The codes documented in this report are preliminary and upon form setter metal road forms review may be revised to meet current compliance requirements. _ Nemo Armando MD 05/03/2018 11:20:52 AM Note Initiated On: 05/03/2018 10:19 AM Number of Addenda: [address] [facility] [address] [place] [address] _ Addendum Number: 1 Addendum Date: 05/03/2018 11:53:36 AM Ileal biopsies were taken of the normal appearing ileum. Random colon biopsies obtained. _ Nemo Armando MD 05/03/2018 11:53:57 AM [facility] 05/03/2018 10:1 9 AM CDT Joellen Cruz MD GI PROCEDURE ORDERABLES Edited Result - Final [facility] from Last 3 Months or Most Recently Relevant to Health Maintenance Insurance [employer] CIGNA Advance Directives * Full Code (Latest Code Status on File) Date Activated Date Inactivated Comments 08/01/2018 1:21 PM 08/01/2018 6:47 PM * Full Code Date Activated Date Inactivated Comments 04/27/2018 8:44 PM 05/05/2018 4:37 PM Care Teams Bicycle Repairman Relationship Specialty Start Date End Date Hector Ghotra DO PCP - General 05/31/18 Charlee Hicks RN Cement Tile Maker 04/30/18
[2025-06-30 14:00] VITALS: PULSE 71; RESP 14; O2SAT 98
--- NOTE | 2025-06-30 14:29 | ED.GENADULT ---
HPI - General Adult General Chief complaint: Dizziness Stated complaint: dizzy since last night. States nauseated. CASILLAS Time Seen by Provider: 06/30/25 12:36 History of Present Illness HPI narrative: Patient is a 49-year-old male who presents ER with dizziness. First began last night when he is lying down going to bed. He felt a spinning sensation. It is also worse when he looks down to sign paperwork and also when he turns to his left side. Mild nausea. No diaphoresis. It is fatigable. No extremity numbness or weakness. No slurred speech. Related Data Home Medications ?Medication ?Instructions ?Recorded ?Confirmed ?Last Taken ?Type cyanocobalamin (vitamin B-12) 500 250 mcg PO DAILY 01/07/25 01/07/25 Unknown History mcg tablet (B-12 DOTS) multivitamin with minerals-ferrous tablet PO 01/07/25 01/07/25 Unknown History sulfate 4.5 mg iron tablet (One Daily Multivitamins with Minerals) omeprazole 40 mg capsule,delayed 40 mg PO DAILY 01/07/25 01/07/25 Unknown History release Allergies Allergy/AdvReac Type Severity Reaction Status Date / Time No Known Allergies Allergy Verified 06/30/25 12:47 Review of Systems Review of Systems: All systems reviewed & are unremarkable except as noted in HPI and below Constitutional: Constitutional: Reports no additional constitutional complaints ENT: Reports system reviewed and no additional complaints, except as documented Cardiovascular: Cardiovascular: Reports no additional cardiovascular complaints Respiratory: Respiratory: Reports no additional respiratory complaints Gastrointestinal: Gastrointestinal: Reports no additional gastrointestinal complaints Integumentary/Breasts: Skin/Breast: Reports system reviewed and no additional complaints, except as docu [facility] Past Medical History Medical History Obstructive sleep apnea GERD (gastroesophageal reflux disease) Seasonal allergies Surgical History Surgical History S/P gastric sleeve procedure Sep 2022. As of 01/2025 he's lost 120lb. Social History Social History (Updated 03/18/25 @ 15:30 by Neema Coombs MA) Smoking status: Never smoker Alcohol intake: current Alcohol use details: rarely Substance use: never Substance use type: does not use Do You Feel Safe in your Home?: Yes Lack of Transportation: No Lack of Food: Never True Current Housing: Decline to Answer Concerned About Future Housing: Decline to Answer Difficulty Paying Gas/Electric Bills: Decline to Answer Difficulty Paying for Meds: Decline to Answer Currently Unemployed: Decline to Answer Education: Decline to Answer Difficulty w/ Childcare or Family Care: Decline to Answer Exam Narrative: GENERAL: Well-appearing, well-nourished, and in no acute distress. HEAD: Normocephalic, atraumatic. EYES: PERRL and EOMI. ENT: Mucous membranes moist. TMs normal bilaterally. Ear canals with scant cerumen. CHEST: Clear to auscultation. No respiratory distress. HEART: Regular rate and rhythm. Normal peripheral pulses. ABDOMEN: Soft, nontender, nondistended. EXTREMITIES: Normal range of motion. No edema. SKIN: Warm, dry, no rash. NEURO: Alert and oriented x3. PSYCH: Normal mood and affect. Course Course Emergency Course: Symptoms resolved with IV fluid and meclizine. Up and ambulatory without dizziness or unsteadiness. Appropriate for discharge home. Vital Signs Vital signs: Vital Signs Temperature 97.7 F 06/30/25 12:39 Pulse Rate 85 06/30/25 12:39 Respiratory Rate 18 06/30/25 12:39 Blood Pressure 135/81 06/30/25 12:39 Pulse Oximetry 100 06/30/25 12:39 Oxygen Delivery Room Air 06/30/25 12:39 Temperature 97.7 F 06/30/25 12:39 Pulse Rate 76 06/30/25 15:27 Respiratory Rate 12 06/30/25 15:27 Blood Pressure 149/94 H 06/30/25 15:27 Pulse Oximetry 96 06/30/25 15:27 Oxygen Delivery Room Air 06/30/25 12:39 Medical Decision Making Differential Diagnosis Differential Diagnosis: BPPV, CVA, labyrinthitis Vital Signs Vital Signs: Vital Signs Temperature 97.7 F 06/30/25 12:39 Pulse Rate 85 06/30/25 12:39 Respiratory Rate 18 06/30/25 12:39 Blood Pressure 135/81 06/30/25 12:39 Pulse Oximetry 100 06/30/25 12:39 Oxygen Delivery Room Air 06/30/25 12:39 Temperature 97.7 F 06/30/25 12:39 Pulse Rate 76 06/30/25 15:27 Respiratory Rate 12 06/30/25 15:27 Blood Pressure 149/94 H 06/30/25 15:27 Pulse Oximetry 96 06/30/25 15:27 Oxygen Delivery Room Air 06/30/25 12:39 Lab Data Lab results reviewed: Yes I reviewed the patient's lab results. 06/30/25 12:53 06/30/25 12:53 Labs: Lab Results 06/30/25 Range/Units 12:53 WBC 5.8 (4.5-10.0) K/mm3 RBC 4.94 (4.6-6.20) M/mm3 Hgb 15.2 (14.0-18.0) g/dL Hct 43.6 (42.0-52.0) % MCV 88.3 (80-100) fl MCH 30.8 (26-34) pg MCHC 34.9 (32-36) g/dl RDW 12.3 (11.5-14.5) % Plt Count 234 D (150-375) k/mm3 MPV 9.1 (7.4-10.4) fl Immature Gran % (Auto) 0.3 (0-0.5) % Neut % (Auto) 63.4 (45.5-73.1) % Lymph % (Auto) 26.0 (18.3-44.2) % [place]ock % (Auto) 5.7 (2.6-8.5) % Eos % (Auto) 3.6 (0-4.4) % Baso % (Auto) 1.0 (0.2-1.2) % Lymph # (Auto) 1.52 (0.9-3.2) K/mm3 [place]ock # (Auto) 0.3 (0.1-0.6) K/mm3 Eos # (Auto) 0.2 (0-0.3) K/mm3 Baso # (Auto) 0.1 (0.0-0.1) K/mm3 Abs Immat Gran (auto) 0.02 (0.00-0.031) K/mm3 Absolute Neuts (auto) 3.7 (1.3-6.7) K/mm3 Absolute Nucleated RBC 0.000 (0.0-0.012) K/mm3 Nucleated RBC % 0.0 (0.0-0.2) % Sodium 140 (137-145) mmol/L Potassium 3.9 (3.4-5.0) mmol/L Chloride 100 (98-107) mmol/L Carbon Dioxide 31 H (22-30) mmol/L Anion Gap 9 (4-12) mmol/L BUN 19 (9-20) mg/dL Creatinine 0.81 (0.7-1.3) mg/dL Estim Creat Clear Calc 114 ml/min Estimated GFR > 60 (59 - ) Glucose 114 H (65-110) mg/dL Calcium 9.6 (8.4-10.2) mg/dL Total Bilirubin 0.6 (0.2-1.3) mg/dL AST 28 (17-59) U/L ALT 25 (6-50) U/L Alkaline Phosphatase 80 (38-126) U/L Total Protein 8.3 H (6.3-8.2) g/dL Albumin 5.1 (3.5-5.1) g/dL Discharge Plan Discharge Clinical Impression: Vertigo Patient Disposition: Home Condition: Stable Instructions: Vertigo (ED) Additional Instructions: Return the ER if you have fever 100.4? F, you have new focal weakness of an arm or leg, you have the inability to speak, or you have additional concerns. Patient Language: Czech Prescriptions: New meclizine 25 mg tablet 25 mg PO TID PRN (Reason: motion sickness) Qty: 14 0RF No Action omeprazole 40 mg capsule,delayed release(DR/EC) 40 mg PO DAILY One Daily Multi-Vit w-Mineral 4.5 mg iron tablet PO cyanocobalamin (vitamin B-12) [B-12 DOTS] 500 mcg tablet 250 mcg PO DAILY Follow-up/Referrals: Brandin,Hector Rosario DO [Primary Care Provider, Unknown] - 1 Week
--- OUTSIDE RECORDS SUMMARY | 2025-06-30 14:42 | XMS_ITS | Clinical Summary ---
Author Organization [facility] Address [address] [facility] [place] [address] Care Team Providers Care Pin Game Machine Inspector Name Role Phone Charlee Hicks RN Unavailable [phone] Hector Ghotra DO Primary Care Provider [phone] Source Comments [facility],non-owned Affiliates and Associated Physician Practices is amultiple site organization consisting of ambulatory clinics and hospital sitesin [place], [place], [place] and [place]. This disclosure is being madepursuant to the Care Everywhere program and may not contain all information available regarding this patient. Last updated 18.[facility] Allergies No known active allergies Medications * [...] Comments Blood Pressure 143/77 09/06/2018 9:31 AM DESIGN CHIEF Pulse 96 09/06/2018 9:31 AM DESIGN CHIEF Temperature 36.7 C (98.1 F) 08/21/2018 1:25 PM DESIGN CHIEF Respiratory Rate 18 08/21/2018 1:25 PM DESIGN CHIEF Oxygen Saturation 96% 09/06/2018 9:31 AM DESIGN CHIEF Inhaled Oxygen Concentration 21% 08/01/2018 3 :25 PM DESIGN CHIEF Weight 140.2 kg (309 lb) 09/06/2018 9:31 AM DESIGN CHIEF Height 177.8 cm (5' 10) 09/06/2018 9:31 AM DESIGN CHIEF Body Mass Index 44.34 09/06/2018 9:31 AM DESIGN CHIEF Plan of Treatment Health Maintenance Due Date [...] - 26 mg/dL 05/05/2018 2:57 AM CDT [facility] Creatinine 1.0 0.6 - 1.2 mg/dL 05/05/2018 2:57 AM [facility] Sodium 138 136 - 145 mmol/L 05/05/2018 2:57 AM [facility] Potassium 3.5 3.5 - 4.5 mmol/L 05/05/2018 2:57 AM [facility] Chloride 103 98 - 107 mmol/L 05/05/2018 2:57 AM [facility] CO2 22 22 - 29 mmol/L 05/05/2018 2:57 AM [facility] Glucose 167(H) 70 - 115 mg/dL 05/05/2018 2:57 AM [facility] Calcium 8.9 8.4 - 10.2 mg/dL 05/05/2018 2:57 AM [facility] Anion Gap 17 8 - 18 05/05/2018 2:57 AM [facility] BUN/Creatinine Ratio 14 7 - 23 05/05/2018 2:57 AM [facility] Osmolality Calculated 290 270 - 300 mOsm/kg 05/05/2018 2:57 AM [facility] eGFR >60 >60 mL/min/1.7 3 m2 05/05/2018 2:57 AM [facility] Blood BLOOD SPECIMEN / Unknown Lab Venipuncture / Unknown 05/05/2018 2:03 AM CDT 05/05/2018 2:33 AM CDT Tori Sweeney MD LAB - CHEMISTRY ORDERABLES Tammie thurman Result Performing Organization Address City/State/[facility] Co de Phone Number [place] [id number] [address] [phone] * ENDOSCOPY, COLON, DIAGNOSTIC (05/03/2018 10:19 AM [...] bowel preparation was evaluated using the BBPS ([place] Bowel Preparation Scale) with scores of: Right [...] non-davis portions. Procedure Code(s): --- Professional --- 49534, Colonoscopy, flexible; diagnostic, including collection of specimen(s) by brushing or washing, when performed (separate procedure) Diagnosis Code(s): --- Professional --- K64.9, Unspecified hemorrhoids K52.9, Noninfective gastroenteritis and colitis, unspecified CPT copyright 2016 [employer]. All rights reserved. The codes documented in this report are preliminary and upon blood donor recruiter review may be revised to meet current compliance requirements. _ Nemo Armando MD 05/03/2018 11:20:52 AM Note Initiated On: 05/03/2018 10:19 AM Number of Addenda: [address] [facility] [address] [place] [address] _ Addendum Number: 1 Addendum Date: 05/03/2018 11:53:36 AM Ileal biopsies were taken of the normal appearing ileum. Random colon biopsies obtained. _ Nemo Armando MD 05/03/2018 11:53:57 AM [facility] 05/03/2018 10:1 9 AM CDT Joellen Cruz MD GI PROCEDURE ORDERABLES Edited Result - Final [facility] from Last 3 Months or Most Recently Relevant to Health Maintenance Insurance [facility] Address: [facility] [id number] [place] [address] [employer] Advance Directives * Full Code (Latest Code Status on File) Date Activated Date Inactivated Comments 08/01/2018 1:21 PM 08/01/2018 6:47 PM * Full Code Date Activated Date Inactivated Comments 04/27/2018 8:44 PM 05/05/2018 4:37 PM Care Teams Pin Game Machine Inspector Relationship Specialty Start Date End Date Hector Ghotra DO PCP - General 05/31/18 Charlee Hicks RN Commercial Appraiser 04/30/18
--- OUTSIDE RECORDS SUMMARY | 2025-06-30 14:42 | XMS_ITS | Clinical Summary ---
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
--- OUTSIDE RECORDS SUMMARY | 2025-06-30 14:42 | XMS_ITS | Clinical Summary ---
Author Organization [facility] Address [address] [place] [address] Care Team Providers Care Crop And Soil Scientist Name Role Phone Brandin Hector Root DO Primary Care Provider Yoni Perez MD Unavailable [phone] Allergies Active Allergy Reactions Criticality Noted [...] 36.6 C (97.8 F) 10/22/2021 10:11 AM CINDER WORKER Respiratory Rate 16 10/30/2018 4:02 PM CINDER WORKER Oxygen Saturation 97% 10/22/2021 10:11 AM CINDER WORKER Inhaled Oxygen Concentration - - Weight 112.9 [...] Hector Ghotra DO LABORATORY Final Resul t [facility] [address] [place] [address], [place] [phone] from Last 3 Months or Most Recently Relevant to Health Maintenance Insurance [facility] Care Teams Crop And Soil Scientist Relationship Specialty Start Date End Date Hector Ghotra DO PCP - General FAMILY PRACTICE 10/30/18 [place] [address] [place] [address] ORTHOPAEDIC SURGERY 04/14/23
--- OUTSIDE RECORDS SUMMARY | 2025-06-30 14:42 | XMS_ITS | Encounter Summary ---
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
--- OUTSIDE RECORDS SUMMARY | 2025-06-30 14:42 | XMS_ITS | Clinical Summary ---
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 Testing performed by: [address] [address] Blood 06/17/2024 4:19 PM CDT 06/17/2024 5:07 PM CDT Maria Antonia Verduzco OWNER ORAL SURGEON LAB BLOOD ORDERABLES Final R esult Performing Organization Address [facility] de Phone Number [place] [phone] [facility] [place] [address] * Hemoglobin A1c (06/17/2024 4:19 PM CDT) [facility] Hgb A1C 5.4 4.0 - 5.6 % Comment:Testing performed by : [address] [address] Estimated Average Glucose 108 mg/dL [facility] Comment: The ADA recommends reporting an estimated Average Glucose (eAG) with all Hemoglobin A1c results using the equation derived from a study of 507 normal and diabetic adults. Minority populations were underrepresented and children were not included. (Diabetes Care 31:4320-6849, 2008). The eAG is not equivalent to a fasting glucose. Testing performed by: [address] [address] Blood 06/17/2024 4:19 PM CDT 06/17/2024 5:07 PM CDT Maria Antonia Verduzco NP LAB BLOOD ORDERABLES Final R esult Performing Organization Address [facility] Co de Phone Number [facility] [address] [facility] [place] [address] * (ABNORMAL) Lipid panel (06/17/2024 4:19 PM [...] last revised on 2018. Testing performed by: [address] [address] Triglycerides 124 <=149 mg/dL [facility] Comment: Interpretive Data Ages < or = [...] last revised on 2018. Testing performed by: [address] [address] HDL 45 >=40 mg/dL [facility] Comment: Interpretive [...] last revised on 2018. Testing performed by: [address] [address] LDL, calculated 155(H) <=129 mg/dL [facility] HERRMANN [...] NCEP Expert Panel. Circulation 2004;110:227 3. Yoel Roto et al. DEVYN Cardiol. 2019January 02;5(5):540-548. doi: 10.1001/jamacardio.2020.0013 Current Interpretive Data was last revised on 2024. Testing performed by: [address] [address] Non-HDL Cholesterol 177 mg/dL [facility] HERRMANN Comment: [...] last revised on 2018. Testing performed by: [address] [address] Chol/HDL ratio 5 [facility] Comment:Testing performed by : [address] [address] Blood 06/17/2024 4:19 PM CDT 06/17/2024 5:07 PM CDT Maria Antonia Verduzco OWNER ORAL SURGEON LAB BLOOD ORDERABLES Final R esult [facility] [address] [facility] Department [place] [address] * Colonoscopy (12/14/2020) Anatomical Region Laterality Modality Other Historical Provider ENDOSCOPY PROCEDURES Tammie l Result from Last 3 Months or Most Recently Relevant to Health Maintenance Insurance CIGNA CIGNA Care Teams Library Paraprofessional Relationship Specialty Start Date End Date Hector Ghotra DO PCP - General Family Practice 09/26/18 Sloan Rayo MD Medical Oncologist/Boat Canvas Maker And Installer Hematology and Oncology 10/04/18
--- OUTSIDE RECORDS SUMMARY | 2025-06-30 14:42 | XMS_ITS | Clinical Summary ---
Author Organization [facility] Address [address] [address] [place] [address] Phone Care Team Providers Care Container Filler Name Role Phone Hector Ghotra DO Primary [...] daily. Active fluticasone propionate (FLONASE) 50 mcg/spray [place], Suspension nasal inhaler Administer 2 Sprays in [...] 60 mL 300 mL 09/27/2022 12:09 PM HYDROMETER TESTER 3 Active ondansetron (ZOFRAN ODT) 4 mg Tablet, Rapid Dissolve Dissolve 1 tablet on top of tongue, then swallow with saliva every 6 hours as needed for Nausea/Vomiting . Tablet 09/27/2022 12:09 PM HYDROMETER TESTER Active Active Problems Problem Noted Date Diagnosed [...] Comments Blood Pressure 141/74 09/27/2022 8:16 AM HYDROMETER TESTER Pulse 75 09/27/2022 7:29 AM HYDROMETER TESTER Temperature 36.8 C (98.3 F) 09/27/2022 7:29 AM HYDROMETER TESTER Respiratory Rate 16 09/27/2022 7:29 AM HYDROMETER TESTER Oxygen Saturation 97% 09/27/2022 7:29 AM HYDROMETER TESTER Inhaled Oxygen Concentration - - Weight 127.4 kg (280 lb 12.8 oz) 09/26/2022 3:19 PM HYDROMETER TESTER Height 180.3 cm (5' 11) 09/26/2022 3:19 PM HYDROMETER TESTER Body Mass Index 39.16 09/26/2022 3:19 PM HYDROMETER TESTER Plan of Treatment Health Maintenance Due Date [...] 05/07/2008, 05/07/2008 Medical Devices Implanted Type Area Fundraising Officer Device Identifier Shelf Expiration Date Model / Serial / Lot Seamguard Endogia 60 Blk [id number] - [id number] Implanted:Qt y: 1 on 09/26/2022 by Manpreet Pastrana MD at [facility] Biological N/A: Stomach [employer] [id number] 05/11/2025 12BSGTRI 60B / / [id number] Seamguard Endogia 60 Blk [id number] - [id number] Implanted:Qt y: 1 on 09/26/2022 by Manpreet Pastrana MD at [facility] Biological N/A: Stomach [employer] [id number] 05/11/2025 12BSGTRI 60B / / [id number] Seamguard Endogia 60 Prpl [id number] - [id number] Implanted:Qt y: 1 on 09/26/2022 by Manpreet Pastrana MD at [facility] [employer] N/A: Stomach [employer] [id number] 05/30/2025 12BSGTRI 60P / / [id number] Seamguard Endogia 60 Prpl [id number] - [id number] Implanted:Qt y: 1 on 09/26/2022 by Manpreet Pastrana MD at [facility] [employer] N/A: Stomach [employer] [id number] 05/30/2025 12BSGTRI 60P / / [id number] Seamguard Endogia 60 Blk [id number] - [id number] Implanted:Qt y: 1 on 09/26/2022 by Manpreet Pastrana MD at [facility] Biological N/A: Stomach [employer] [id number] 04/13/2025 12BSGTRI 60B / / [id number] Procedures Procedure Name Priority Date/Time Associated Diagnosis Comments HEMOGLOBIN A1C Routine 09/27/2022 4:44 AM HYDROMETER TESTER from Last 3 Months or Most Recently Relevant to Health Maintenance Results * (ABNORMAL) HEMOGLOBIN A1C (09/27/2022 4:44 AM HYDROMETER TESTER) HEMOGLOBIN A1C 8.9(H) <=5.6 % 09/27/2022 5:20 AM HYDROMETER TESTER [facility] EST. AVG GLUCOSE, A1C 209 mg/dL 09/27/2022 5:20 AM [facility] Blood Venipuncture / Unknown 09/27/2022 4:44 AM HYDROMETER TESTER 09/27/2022 5:01 AM HYDROMETER TESTER Narrative [facility] - 09/27/2022 5:20 AM HYDROMETER TESTER HGB A1C INTERPRETATION NORMAL: <5.7% PRE-DIABETES: 5.7 - 6.4% DIABETES: 6.5% OR GREATER Leah MERCEDESP CHEMISTRY ORDERABLES Final Resul t [facility] # [id number] [facility] [address] [place] [address] from Last 3 Months or Most Recently Relevant to Health Maintenance Insurance [employer] BLUE ACCESS/TRUE BLUE PPO RX [employer] Commercial Advance Directives For more information, please contact: [phone] * Full Code (Latest Code Status on File) Date Activated Date Inactivated Comments 09/26/2022 11:09 AM 09/27/2022 2:55 PM * Full Code Date Activated Date Inactivated Comments 09/26/2022 9:29 AM 09/26/2022 11:09 AM * Full Code Date Activated Date Inactivated Comments 08/05/2022 9:26 AM 08/05/2022 2:06 PM Care Teams Container Filler Relationship Specialty Start Date End Date Hector Ghotra DO PCP - General Family Practice 08/05/22
--- NOTE | 2025-06-30 14:53 | PC.NURSE ---
This RN went into room to attempt road test per EDP. Pt and family asked to speak to doctor regarding reasoning for not doing CT scan and about medication prescription upon discharge. MD notified.
[2025-06-30 15:27] VITALS: BP 149/94; PULSE 76; RESP 12; O2SAT 96
== END 2025-06-30 16:13 | disposition home or self-care (01) ==
PROVIDERS: Emergency Provider Emergency Medicine; PCP Family Medicine
DX: R42 Dizziness and giddiness (principal); K21.9 Gastro-esophageal reflux disease without esophagitis; G47.33 Obstructive sleep apnea (adult) (pediatric); R94.31 Abnormal electrocardiogram [ECG] [EKG]
CPT/HCPCS: 36415; 71046; 80053; 85025; 93005; 96360; 99284; A9270; J7030